=== PATIENT | male | born 1980 | race Caucasian/White ===

== ENCOUNTER 2017-10-13 19:55 | Emergency (ER) | payer OTHER ==
[2017-10-13 20:01] VITALS: BP 183/89; PULSE 105; RESP 18; TEMP 97.5
--- NOTE | 2017-10-13 20:33 | XR ---
EXAMINATION TYPE: XR knee complete RT DATE OF EXAM: 10/13/2017 CLINICAL HISTORY: Right knee pain TECHNIQUE: Three views of the right knee are obtained. COMPARISON: None. FINDINGS: There is no acute fracture/dislocation evident in right knee. The tri-compartment joint s paces appear within normal limits. The overlying soft tissue appears unremarkable. Incidental note i s made of a fabella. IMPRESSION: There is no acute fracture or dislocation in the right knee.
--- NOTE | 2017-10-13 21:19 | ED ---
General Adult HPI - General Chief complaint: Extremity Injury, Lower Stated complaint: Knee pain Time Seen by Provider: 10/13/17 20:04 Source: patient, family, RN notes reviewed Mode of arrival: ambulatory Limitations: no limitations - History of Present Illness Initial comments: 37-year-old patient presents to the emergency department for a chief complaint of right knee pain times two days. 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 Patient states he thinks it is dislocated. Patient states he has tendinitis in the knee which often causes him pain. Patient takes Tylenol for this. Patient denies any other falls or injuries. Patient states he is able to walk on it. Patient has no other complaints at this time including shortness of breath, chest pain, abdominal pain, nausea or vomiting, headache, or visual changes. - Related Data Home Medications Medication Instructions Recorded Confirmed No Known Home Medications [No 10/13/17 10/13/17 Known Home Medications] Allergies Allergy/AdvReac Type Severity Reaction Status Date / Time No Known Allergies Allergy Verified 10/13/17 20:01 Review of Systems ROS Statement: Those systems with pertinent positive or pertinent negative responses have been documented in the HPI. ROS Other: All systems not noted in ROS Statement are negative. Past Medical History Additional Past Medical History / Comment(s): knee pain History of Any Multi-Drug Resistant Organisms: None Reported Past Surgical History: Orthopedic Surgery Past Psychological History: No Psychological Hx Reported Smoking Status: Current every day smoker Past Alcohol Use History: Occasional Past Drug Use History: None Reported General Exam Limitations: no limitations General appearance: alert, in no apparent distress Respiratory exam: Present: normal lung sounds bilaterally. Absent: respiratory distress, wheezes, rales, rhonchi, stridor Cardiovascular Exam: Present: regular rate, normal rhythm, normal heart sounds. Absent: systolic murmur, diastolic murmur, rubs, gallop, clicks Extremities exam: Present: normal inspection, full ROM (Full flexion and extension of the right knee.), normal capillary refill (Refill less than 2 seconds and pedal and PT pulse 2+.), other (Sensation intact in the right lower extremity.). Absent: tenderness (No tenderness to palpation of the right knee.) , pedal edema, joint swelling (No swelling or redness noted in the right knee.) , calf tenderness Course Vital Signs 05/26/18 19:58 Temperature 97.5 F L Pulse Rate 105 H Respiratory 18 Rate Blood Pressure 183/89 O2 Sat by Pulse 100 Oximetry Medical Decision Making - Medical Decision Making 37-year-old male presents to the emergency determine for a chief complaint of right knee pain 2 days. Patient was at work when he "twisted his knee wrong". Patient thinks his knee is dislocated. Patient also has a history of tendinitis. Patient is able to walk on it without difficulty. On exam patient has full range of motion of the right knee and neurovascular is intact. No acute fracture or dislocation in the right knee. Tricompartment joint spaces appear within normal limits. Overlying soft tissue unremarkable. Patient likely has a ligamentous injury of the knee. He can follow up outpatient for this. He will be given the referral to the orthopedic surgeon inspector clip on sunglasses. Patient was offered a prescription for Motrin which he declined. He states he has Tylenol at home. He was given a prescription for crutches in case he has pain walking. He will return to the emergency department if he has any worsening symptoms. Disposition Clinical Impression: Knee pain, right Disposition: HOME SELF-CARE Condition: Good Instructions: Knee Sprain (ED), Knee Pain (ED) Additional Instructions: Please take Motrin and Tylenol for pain. Please rest, ice, and elevate the right knee. Use brace as necessary. Return to the emergency department if symptoms worsen. Follow-up with orthopedics or primary care if symptoms continue. Is patient prescribed a controlled substance at d/c from ED?: No Referrals: Lester Donaldson DO [Doctor of Osteopathic Medicine] - 1-2 days Time of Disposition: 21:17
== END 2017-10-13 21:29 | disposition home or self-care (01) ==
LOC: EC 19:55
DX: M25.561 Pain in right knee (principal); F17.200 Nicotine dependence, unspecified, uncomplicated; X50.1XXA Overexertion from prolonged static or awkward postures, initial encounter; Y93.89 Activity, other specified; Y92.69 Other specified industrial and construction area as the place of occurrence of the external cause
CPT/HCPCS: 99283

== ENCOUNTER 2022-05-17 04:13 | Inpatient (IN) | payer BC ==
[2022-05-17] MEDS ORDERED: ETOMIDATE 2 MG/ML 10 ML VIAL IVP STA (04:21)
[2022-05-17] MEDS ORDERED: SUCCINYLCHOLINE CHLORIDE 200 MG/10 ML VIAL IV STA (04:21)
[2022-05-17 04:40] LABS: Glucose,Whole Blood >600 mg/dL (70-110)
--- NOTE | 2022-05-17 04:49 | XR ---
EXAMINATION TYPE: XR chest 1V portable DATE OF EXAM: 05/17/2022 COMPARISON: NONE HISTORY: Intubation TECHNIQUE: Single view FINDINGS: The endotracheal tube is 1.5 cm into the right mainstem bronchus. There is some mild atelec tasis and infiltrate left lower lobe behind the heart. Right lung is clear. There are chest leads. Donnell ny thorax is intact. IMPRESSION: There is some infiltrate or atelectasis left lower lobe. Malposition of the endotracheal tube in the right mainstem bronchus. The nasogastric tube has the tip in the lower esophagus.
--- NOTE | 2022-05-17 04:51 | XR ---
EXAMINATION TYPE: XR chest 1V portable DATE OF EXAM: 05/17/2022 COMPARISON: NONE HISTORY: Respiratory failure TECHNIQUE: Single view FINDINGS: The endotracheal tube is 3.5 cm from the ashutosh. The nasogastric tube has the tip in the lo wer esophagus at the level of the left atrium. The lungs are clear of consolidation. No heart failure . There are chest leads. IMPRESSION: NG tube is in the esophagus. Endotracheal tube in good position. Normal heart.
[2022-05-17 05:19] LABS: Appearance,Urine Clear (Clear); Bacteria,Urine Rare /hpf; Bilirubin,Urine Negative (Negative); Blood,Urine Small (Negative); Color,Urine Light Yellow; Glucose,Urine (UA) 4+ (Negative); Hyaline Casts,Urine 1 /lpf (0-2); Leukocyte Esterase,Urine Negative (Negative); Mucus,Urine Rare /hpf; Nitrite,Urine Negative (Negative); PH, Urine 5.5 (5.0-8.0); Protein,Urine 2+ (Negative); RBC,Urine <1 /hpf (0-5); Specific Gravity,Urine 1.032 (1.001-1.035); Squamous Epithelial Cell,Urine 1 /hpf (0-4); Urobilinogen,Urine <2.0 mg/dL (<2.0); WBC,Urine 1 /hpf (0-5)
[2022-05-17 05:25] LABS: Ketones,Urine 4+ (Negative)
[2022-05-17 05:27] LABS: Alcohol <10 mg/dL; Lipase 349 U/L (23-300)
[2022-05-17 05:27] LABS: Amphetamine Screen,Urine Not Detected (NotDetected); Barbiturate Screen,Urine Not Detected (NotDetected); Benzodiazepines Screen,Urine Not Detected (NotDetected); Cocaine Screen,Urine Not Detected (NotDetected); Methadone Screen, Urine Not Detected (NotDetected); Opiate Screen,Urine Not Detected (NotDetected); Oxycodone Screen, Urine Not Detected (NotDetected); Phencyclidine Screen,Urine Not Detected (NotDetected); Tricyclic Antidepressant,Urine Not Detected (NotDetected); Urn Cannabinoid Scrn Not Detected (NotDetected)
[2022-05-17 05:29] LABS: ABG Oxygen Saturation 99.3 % (94-97); ABG PO2 256 mmHg (83-108); ABG TCO2 3 mmol/L (19-24); Allen Test Performed? Yes
[2022-05-17 05:35] LABS: ABG PCO2 16 mmHg (35-45); ABG PH <6.80 (7.35-7.45)
[2022-05-17 05:36] LABS: ABG Base Excess -32.2 mmol/L; ABG HCO3 3 mmol/L (21-25)
--- NOTE | 2022-05-17 05:38 | CT ---
EXAMINATION TYPE: CT brain wo con DATE OF EXAM: 05/17/2022 COMPARISON: None HISTORY: AMS CT DLP: 1099.4 mGycm Automated exposure control for dose reduction was used. Images obtained of the brain without contrast. Ventricles and sulci appear normal. There is no mass effect or midline shift. No sign of intracranial hemorrhage. The calvarium is intact. No evidence of cerebral edema. There is extensive mucosal thickening in the paranasal sinuses. IMPRESSION: Negative CT scan of the brain. Pansinusitis.
[2022-05-17] MEDS ORDERED: MIDAZOLAM 1 MG/ML 5 ML VIAL IV STA (05:40)
[2022-05-17 05:41] LABS: Lactic Acid, Venous 6.6 mmol/L (0.7-2.0)
[2022-05-17] MEDS ORDERED: SODIUM CHLORIDE 0.9% 1,000 ML IV ONE ×2 (05:43)
[2022-05-17 06:01] LABS: HGB 18.4 gm/dL (13.0-17.5); Hypochromasia Marked; MCHC 30.1 g/dL (31.0-37.0); MCV 109.4 fL (80.0-100.0); Macrocytosis Moderate; Mean Platelet Volume 10.1; Platelet Count 395 k/uL (150-450); WBC 12.4 k/uL (3.8-10.6)
[2022-05-17 06:06] LABS: ALT 17 U/L (4-49); African American GFR (CKD) 44 (>60 ml/min/1.73 sqM); Albumin 4.1 g/dL (3.5-5.0); Blood Urea Nitrogen 21 mg/dL (9-20); Calcium 9.1 mg/dL (8.4-10.2); Chloride 105 mmol/L (98-107); Non-African American GFR(CKD) 38 (>60 ml/min/1.73 sqM); Sodium 140 mmol/L (137-145); Total Bilirubin 0.6 mg/dL (0.2-1.3); Total Protein 7.1 g/dL (6.3-8.2)
[2022-05-17 06:17] LABS: AST 22 U/L (17-59); Carbon Dioxide <5 mmol/L (22-30); Glucose 794 mg/dL (74-99); Potassium 4.5 mmol/L (3.5-5.1)
[2022-05-17 06:18] LABS: Alkaline Phosphatase 113 U/L (38-126)
--- NOTE | 2022-05-17 06:26 | ED ---
General Adult HPI - General Chief complaint: Altered Mental Status Stated complaint: AMS Time Seen by Provider: 05/17/22 04:30 Source: EMS Mode of arrival: EMS - History of Present Illness Initial comments: This is a 42-year-old male who presents emergency department via EMS for altered mental status and being found next to the bed by the . The patient's stated that she found the patient lying on the floor next to his bed altered, not able to speak or respond to her. The patient and called 911. The patient does not have a reported past medical history and no further history was obtained at this time by EMS nor by the patient as he was altered and was responsive to only painful stimuli. EMS did administer 2 mg of Narcan without any change. - Related Data Home Medications Medication Instructions Recorded Confirmed No Known Home Medications 10/13/17 10/13/17 Allergies Allergy/AdvReac Type Severity Reaction Status Date / Time No Known Allergies Allergy Verified 10/13/17 20:01 Review of Systems ROS Statement: Those systems with pertinent positive or pertinent negative responses have been documented in the HPI. ROS Other: All systems not noted in ROS Statement are negative. Past Medical History Additional Past Medical History / Comment(s): knee pain History of Any Multi-Drug Resistant Organisms: Unobtainable Past Surgical History: Orthopedic Surgery Past Psychological History: Unable to Obtain Past Alcohol Use History: Unable to Obtain Past Drug Use History: Unable to Obtain General Exam Limitations: altered mental status General appearance: lethargic, obtunded Head exam: Present: atraumatic, normocephalic Eye exam: Present: normal appearance, PERRL Pupils: Present: normal accommodation ENT exam: Present: normal exam, normal oropharynx, mucous membranes dry Neck exam: Present: normal inspection, full ROM Respiratory exam: Present: normal lung sounds bilaterally Cardiovascular Exam: Present: tachycardia, normal heart sounds GI/Abdominal exam: Present: soft, normal bowel sounds Extremities exam: Present: normal inspection, full ROM Back exam: Present: normal inspection, full ROM Neurological exam: Present: altered, other (Only responsive to painful stimuli) Psychiatric exam: Present: other (Unresponsive, only responsive to painful stimuli) Skin exam: Present: warm, dry Course Vital Signs 05/17/22 05/17/22 05/17/22 04:17 04:28 04:57 Pulse Rate 107 H 93 Respiratory 26 H 20 Rate Blood Pressure 115/96 128/77 O2 Sat by Pulse 99 99 Oximetry Fraction of 50 Inspired Oxygen (FIO2) 05/17/22 05:31 Pulse Rate 93 Respiratory 20 Rate Blood Pressure 115/83 O2 Sat by Pulse 100 Oximetry Fraction of Inspired Oxygen (FIO2) EKG Findings - EKG Comments: EKG Findings:: An EKG was obtained and was interpreted by myself. EKG showed a rate of 90, P arrival 133, QR baptism 90 and QTC of 434. This EKG showed a normal sinus rhythm with no ST segment elevations or depressions noted. Procedures - Intubation Sedative: Etomidate Mg Given: 20 Paralytic: Succinylcholine Mg Given: 70 Laryngoscope: Nisa Size: 4 ET Tube Size: 7.5 ET Tube Uncuffed: No Tube Secured Depth (cm): 23 Tube Secured Location: lips Tube Placement Confirmation: visualized tube passing through cords, equal breath sounds bilaterally, confirmation by capnometry Patient Tolerated Procedure: well Intubation Complications: none Medical Decision Making - Medical Decision Making Was pt. sent in by a medical professional or institution? @ -No Did you speak to anyone other than the patient for history? @ -EMS Did you review nursing and triage notes? @ -Nursing triage notes were reviewed Were old charts reviewed? @ -No Differential Diagnosis? @ -Intracranial hemorrhage, CVA, drug ingestion, new onset diabetes with DKA EKG interpreted by me (3pts min.)? @ -As above X-rays interpreted by me (1pt min.)? @ -Chest x-ray was obtained and was interpreted by myself. Chest x-ray showed an NG tube that was in the esophagus the need to be removed and the nurse was told. Endotracheal tube is in good position. There is normal heart. CT interpreted by me (1pt min.)? @ -CT of the head was also obtained and was interpreted by myself. CT of the head showed no acute intracranial process. U/S interpreted by me (1pt. min.)? @ -[none] What testing was considered but not performed? (CT, X-rays, U/S, labs)? Why? @None What meds were considered but not given? Why? @ -[none] Did you discuss the management of the patient with other professionals? @ -Yes, accepting physician, Dr. Eid and ICU program supervisor, Dr. Moreno. Did you reconcile home meds? @ -[none] Was smoking cessation discussed for >3mins.? @ -[none] Was critical care preformed (if so, how long)? @ -Yes, see above Were there social determinants of health that impacted care today? How? (Homelessness, low income, unemployed, alcoholism, drug addiction, transportation, low edu. Level, literacy, decrease access to med. care, penitentiary, rehab)? @ -No Was there de-escalation of care discussed even if they declined? (Discuss DNR or withdrawal of care, Hospice)? @ -No What co-morbidities impacted this encounter? (DM, HTN, Smoking, COPD, CAD, Cancer, CVA, Hep., AIDS, mental health diagnosis, sleep apnea, morbid obesity)? @ -No Was patient admitted / discharged? @ -The patient was seen and evaluated emergency department. Immediately on arrival, the patient wasn't treated for airway protection as he was altered and only responsive to painful stimuli. Laboratory workup was obtained and ABGs were obtained initially on arrival. ABG showed a pH of 6.7 and a bicarb of 2 consistent with possible severe DKA. CT head and chest x-ray negative. The patient did tolerate the intubation well and remained stable after the intubation. Laboratory workup showed labs consistent with DKA and the patient did have a potassium of 4.5 so he was supplemented with potassium and started on an insulin drip. Due to the patient's severe DKA in the setting of new onset diabetes, the patient will be admitted to the ICU for further workup and evaluation. The patient's accepting physician, Dr. Eid was contacted and accepted at 0622 and the program supervisor was also made aware of the patient. Dr. Moreno was accepting. The patient was placed in ICU in stable condition. Undiagnosed new problem with uncertain prognosis? @ -[none] Drug Therapy requiring intensive monitoring for toxicity (Heparin, Nitro, Insulin, Cardizem)? @ -Insulin drip Were any procedures done? @ -Yes, intubation, please see note above Diagnosis/symptom? @ -New onset diabetes with severe DKA Acute, or Chronic, or Acute on Chronic? @ -Acute Uncomplicated (without systemic symptoms) or Complicated (systemic symptoms)? @ -Complicated Side effects of treatment? @ -[none] Exacerbation, Progression, or Severe Exacerbation] @ -[no] Poses a threat to life or bodily function? @ -Yes Diagnosis/symptom? @ -Ventilator dependent respiratory failure Acute, or Chronic, or Acute on Chronic? @ -Acute Uncomplicated (without systemic symptoms) or Complicated (systemic symptoms)? @ -Complicated Side effects of treatment? @ -[none] Exacerbation, Progression, or Severe Exacerbation] @ -[no] Poses a threat to life or bodily function? @ -Yes - Lab Data Result diagrams: 05/17/22 04:51 Lab Results 05/17/22 05/17/22 05/17/22 Range/Units 04:36 04:51 04:51 Sample Site ABG pH (7.35-7.45) ABG pCO2 (35-45) mmHg ABG pO2 (83-108) mmHg ABG HCO3 (21-25) mmol/L ABG Total CO2 (19-24) mmol/L ABG O2 Saturation (94-97) % ABG Base Excess mmol/L Zechariah Test FiO2 % Sodium (137-145) mmol/L Potassium (3.5-5.1) mmol/L Chloride (98-107) mmol/L Carbon Dioxide (22-30) mmol/L Anion Gap mmol/L BUN (9-20) mg/dL Creatinine (0.66-1.25) mg/dL Est GFR (CKD-EPI)AfAm (>60 ml/min/1.73 sqM) Est GFR (CKD-EPI)NonAf (>60 ml/min/1.73 sqM) Glucose (74-99) mg/dL POC Glucose (mg/dL) >600 H (70-110) mg/dL POC Glu Process Controls Technician ID Mariama Ervin Plasma Lactic Acid David (0.7-2.0) mmol/L Calcium (8.4-10.2) mg/dL Magnesium (1.6-2.3) mg/dL Total Bilirubin (0.2-1.3) mg/dL AST (17-59) U/L ALT (4-49) U/L Alkaline Phosphatase (38-126) U/L Ammonia (<30) umol/L Troponin I <0.012 (0.000-0.034) ng/mL NT-Pro-B Natriuret Pep 85 pg/mL Total Protein (6.3-8.2) g/dL Albumin (3.5-5.0) g/dL Lipase (23-300) U/L Urine Color Urine Appearance (Clear) Urine pH (5.0-8.0) Ur Specific [place] (1.001-1.035) Urine Protein (Negative) Urine Glucose (UA) (Negative) Urine Ketones (Negative) Urine Blood (Negative) Urine Nitrite (Negative) Urine Bilirubin (Negative) Urine Urobilinogen (<2.0) mg/dL Ur Leukocyte Esterase (Negative) Urine RBC (0-5) /hpf Urine WBC (0-5) /hpf Ur Squamous Epith Cells (0-4) /hpf Urine Bacteria (None) /hpf Hyaline Casts (0-2) /lpf Urine Mucus (None) /hpf Urine Opiates Screen (NotDetected) Ur Oxycodone Screen (NotDetected) Urine Methadone Screen (NotDetected) Ur Propoxyphene Screen (NotDetected) Ur Barbiturates Screen (NotDetected) U Tricyclic Antidepress (NotDetected) Ur Phencyclidine Scrn (NotDetected) Ur Amphetamines Screen (NotDetected) U Methamphetamines Scrn (NotDetected) U Benzodiazepines Scrn (NotDetected) Urine Cocaine Screen (NotDetected) U Marijuana (THC) Screen (NotDetected) Serum Alcohol mg/dL 05/17/22 05/17/22 05/17/22 Range/Units 04:51 04:51 04:51 Sample Site ABG pH (7.35-7.45) ABG pCO2 (35-45) mmHg ABG pO2 (83-108) mmHg ABG HCO3 (21-25) mmol/L ABG Total CO2 (19-24) mmol/L ABG O2 Saturation (94-97) % ABG Base Excess mmol/L Zechariah Test FiO2 % Sodium 140 (137-145) mmol/L Potassium 4.5 (3.5-5.1) mmol/L Chloride 105 (98-107) mmol/L Carbon Dioxide <5 L* (22-30) mmol/L Anion Gap mmol/L BUN 21 H (9-20) mg/dL Creatinine 2.07 H (0.66-1.25) mg/dL Est GFR (CKD-EPI)AfAm 44 (>60 ml/min/1.73 sqM) Est GFR (CKD-EPI)NonAf 38 (>60 ml/min/1.73 sqM) Glucose 794 H* (74-99) mg/dL POC Glucose (mg/dL) (70-110) mg/dL POC Glu Process Controls Technician ID Plasma Lactic Acid David 6.6 H* (0.7-2.0) mmol/L Calcium 9.1 (8.4-10.2) mg/dL Magnesium 3.0 H (1.6-2.3) mg/dL Total Bilirubin 0.6 (0.2-1.3) mg/dL AST 22 (17-59) U/L ALT 17 (4-49) U/L Alkaline Phosphatase 113 (38-126) U/L Ammonia 73 H (<30) umol/L Troponin I (0.000-0.034) ng/mL NT-Pro-B Natriuret Pep pg/mL Total Protein 7.1 (6.3-8.2) g/dL Albumin 4.1 (3.5-5.0) g/dL Lipase 349 H (23-300) U/L Urine Color Urine Appearance (Clear) Urine pH (5.0-8.0) Ur Specific [place] (1.001-1.035) Urine Protein (Negative) Urine Glucose (UA) (Negative) Urine Ketones (Negative) Urine Blood (Negative) Urine Nitrite (Negative) Urine Bilirubin (Negative) Urine Urobilinogen (<2.0) mg/dL Ur Leukocyte Esterase (Negative) Urine RBC (0-5) /hpf Urine WBC (0-5) /hpf Ur Squamous Epith Cells (0-4) /hpf Urine Bacteria (None) /hpf Hyaline Casts (0-2) /lpf Urine Mucus (None) /hpf Urine Opiates Screen (NotDetected) Ur Oxycodone Screen (NotDetected) Urine Methadone Screen (NotDetected) Ur Propoxyphene Screen (NotDetected) Ur Barbiturates Screen (NotDetected) U Tricyclic Antidepress (NotDetected) Ur Phencyclidine Scrn (NotDetected) Ur Amphetamines Screen (NotDetected) U Methamphetamines Scrn (NotDetected) U Benzodiazepines Scrn (NotDetected) Urine Cocaine Screen (NotDetected) U Marijuana (THC) Screen (NotDetected) Serum Alcohol <10 mg/dL 05/17/22 05/17/22 05/17/22 Range/Units 04:52 04:52 05:27 Sample Site right radial ABG pH <6.80 L* (7.35-7.45) ABG pCO2 16 L* (35-45) mmHg ABG pO2 256 H (83-108) mmHg ABG HCO3 3 L* (21-25) mmol/L ABG Total CO2 3 L (19-24) mmol/L ABG O2 Saturation 99.3 H (94-97) % ABG Base Excess -32.2 mmol/L Zechariah Test Yes FiO2 50 % Sodium (137-145) mmol/L Potassium (3.5-5.1) mmol/L Chloride (98-107) mmol/L Carbon Dioxide (22-30) mmol/L Anion Gap mmol/L BUN (9-20) mg/dL Creatinine (0.66-1.25) mg/dL Est GFR (CKD-EPI)AfAm (>60 ml/min/1.73 sqM) Est GFR (CKD-EPI)NonAf (>60 ml/min/1.73 sqM) Glucose (74-99) mg/dL POC Glucose (mg/dL) (70-110) mg/dL POC Glu Process Controls Technician ID Plasma Lactic Acid David (0.7-2.0) mmol/L Calcium (8.4-10.2) mg/dL Magnesium (1.6-2.3) mg/dL Total Bilirubin (0.2-1.3) mg/dL AST (17-59) U/L ALT (4-49) U/L Alkaline Phosphatase (38-126) U/L Ammonia (<30) umol/L Troponin I (0.000-0.034) ng/mL NT-Pro-B Natriuret Pep pg/mL Total Protein (6.3-8.2) g/dL Albumin (3.5-5.0) g/dL Lipase (23-300) U/L Urine Color Light Yellow Urine Appearance Clear (Clear) Urine pH 5.5 (5.0-8.0) Ur Specific V[place]y 1.032 (1.001-1.035) Urine Protein 2+ H (Negative) Urine Glucose (UA) 4+ H (Negative) Urine Ketones 4+ H (Negative) Urine Blood Small H (Negative) Urine Nitrite Negative (Negative) Urine Bilirubin Negative (Negative) Urine Urobilinogen <2.0 (<2.0) mg/dL Ur Leukocyte Esterase Negative (Negative) Urine RBC <1 (0-5) /hpf Urine WBC 1 (0-5) /hpf Ur Squamous Epith Cells 1 (0-4) /hpf Urine Bacteria Rare H (None) /hpf Hyaline Casts 1 (0-2) /lpf Urine Mucus Rare H (None) /hpf Urine Opiates Screen Not Detected (NotDetected) Ur Oxycodone Screen Not Detected (NotDetected) Urine Methadone Screen Not Detected (NotDetected) Ur Propoxyphene Screen Not Detected (NotDetected) Ur Barbiturates Screen Not Detected (NotDetected) U Tricyclic Antidepress Not Detected (NotDetected) Ur Phencyclidine Scrn Not Detected (NotDetected) Ur Amphetamines Screen Not Detected (NotDetected) U Methamphetamines Scrn Not Detected (NotDetected) U Benzodiazepines Scrn Not Detected (NotDetected) Urine Cocaine Screen Not Detected (NotDetected) U Marijuana (THC) Screen Not Detected (NotDetected) Serum Alcohol mg/dL Critical Care Time Critical Care Time: Yes Total Critical Care Time: 52 Disposition Clinical Impression: DKA (diabetic ketoacidosis), New onset type 1 diabetes mellitus, uncontrolled, Respiratory failure requiring intubation, Altered mental status Disposition: ADMITTED IP TO THIS [facility] Condition: Serious Is patient prescribed a controlled substance at d/c from ED?: No Referrals: None,Stated [Primary Care Provider] - 1-2 days Time of Disposition: 06: Decision to Admit Reason: Admit from EC Decision Date: 05/17/22 Decision Time: :
[2022-05-17 06:45] LABS: HCT 61.3 % (39.0-53.0)
[2022-05-17 06:53] LABS: Glucose,Whole Blood >600 mg/dL (70-110)
[2022-05-17] MEDS: INSULIN REGULAR 100 UNIT in SODIUM CHLORIDE 0.9% 100 ML IV SCH ×2 (06:53→20:21)
[2022-05-17] MEDS: SODIUM CHLORIDE 0.9% 1,000 ML IV SCH ×2 (07:01→12:15)
[2022-05-17 07:24] LABS: Band Neutrophils % 5 %; Monocytes # (M) 0.62 k/uL (0-1.0); Neutrophils % (M) 69 %; Nucleated Red Blood Cells 0 /100 WBC (0-0); Total Cells Counted 100
[2022-05-17] MEDS ORDERED: SODIUM BICARB 8.4% 50 ML SYR (1 MEQ/ML) IV STA ×2 (07:27→08:06)
--- NOTE | 2022-05-17 07:44 | P.CNPUL ---
History of Present Illness Consult date: 05/17/22 Requesting physician: Susie Eid Chief complaint: Respiratory failure/DKA History of present illness: Pulmonary consult dated 05/17/2022. 42-year-old male with no significant past medical history other than suspected diabetes, who apparently was found unresponsive with mental status changes, by his . Apparently he was lying on the floor next to the bed. He was unable to respond or speak. EMS was called, and the patient was transported into the emergency department. In the emergency department, he did receive Narcan, without any change. The patient was intubated in the emergency room. The patient has no significant past medical history according to his , and takes no medications on a routine basis at home. The patient does smoke cigarettes. The patient recently failed his Department of Transportation examination because of elevated blood sugar. For that reason, the states that they suspected diabetes. Apparently no alcohol use. No family doctor as mentioned above. He seen in the emergency room, trauma room 1. He is intubated and mechanically ventilated. He is getting propofol at 35 mcg/kg/m, and saline via bolus. An insulin drip is going to be started. He has an NG tube in place, a Hedrick catheter in place, and an endotracheal tube. Ventilator settings include the v olume assist control, rate 16, tidal volume 400, FiO2 50%, and PEEP of 5. White count 12.4, hemoglobin 18.4, hematocrit 61.3, and platelet count 395,000. Blood gases show a PaO2 of 256, pCO2 of 16, and a pH is 6.80. Sodium 140, potassium 4.5, chlorides 105, CO2 less than 5, BUN 21, and creatinine 2.07. Glucose was 794. Lactic acid 6.6. Magnesium 3. Lipase 349. Drug screen was negative. Br ain CT was negative save for pansinusitis. Chest x-ray shows a properly placed NG tube, and a properly placed endotracheal tube. It's 3.5 cm above the ashutosh. Review of Systems REVIEW OF SYSTEMS: Review of systems cannot be obtained as the patient's currently sedated and intubated. He apparently was found unresponsive at home, by his . CONSTITUTIONAL: [Negative.] NEUROLOGIC: [ Negative.] HEENT: [ Negative.] CARDIAC: [Negative.] PULMONARY: [Negative.] GI: [Negative.] : [Negative.] RHEUMATOLOGIC: [ Negative.] IMMUNOLOGIC: [ Negative.] ENDOCRINE: [Negative. ] DERMATOLOGIC: [Negative.] Past Medical History Additional Past Medical History / Comment(s): knee pain History of Any Multi-Drug Resistant Organisms: Unobtainable Past Surgical History: Orthopedic Surgery Past Psychological History: Unable to Obtain Past Alcohol Use History: Unable to Obtain Past Drug Use History: Unable to Obtain Medications and Allergies Home Medications Medication Instructions Recorded Confirmed Type No Known Home Medications 10/13/17 05/17/22 History Allergies Allergy/AdvReac Type Severity Reaction Status Date / Time No Known Allergies Allergy Verified 05/17/22 07:19 Physical Exam Osteopathic Statement: *. No significant issues noted on an osteopathic structural exam other than those noted in the History and Physical/Consult. Vitals: Vital Signs Temp Pulse Resp BP Pulse Ox FiO2 05/17/22 06:49 97.2 F L 87 18 118/72 100 05/17/22 05:31 93 20 115/83 100 05/17/22 04:57 93 20 128/77 99 05/17/22 04:28 50 05/17/22 04:17 107 H 26 H 115/96 99 Intake and Output 05/16/22 05/17/22 05/17/22 22:59 06:59 14:59 Intake Total 6.811 Balance 6.811 Intake: Intake, IV Titration 6.811 Amount propofoL 1,000 mg In 6.811 Empty Bag 1 bag @ 15 MCG/ KG/MIN 4.286 mls/hr IV . [id number] Rx#:[id number] Other: Weight 47.627 kg No acute distress, sedated, with an orally placed endotracheal tube and NG tube. HEENT examination is grossly unremarkable. Neck supple. Full range of motion. No adenopathy thyromegaly or neck vein distention. Cardiovascular examination reveals regular rhythm rate. S1-S2 normal. No S3 or S4. No discernible murmur noted. Heart rate 87 bpm. Lungs reveal clear breath sounds. Breath sounds are equal bilaterally. No adventitious lung sounds including wheezes rhonchi or crackles. Abdomen soft bowel sounds are heard. No masses or tenderness. Extremities are intact. No cyanosis clubbing or edema. Skin is without rash or lesion. Neurologic examination cannot be properly assessed. Results - Laboratory Findings CBC and BMP: 05/17/22 04:51 05/17/22 04:51 ABG ABG pH <6.80 (7.35-7.45) L* 05/17/22 05:27 ABG pCO2 16 mmHg (35-45) L* 05/17/22 05:27 ABG pO2 256 mmHg (83-108) H 05/17/22 05:27 ABG O2 Saturation 99.3 % (94-97) H 05/17/22 05:27 Abnormal lab findings: Abnormal Labs 05/17/22 05/17/22 05/17/22 04:36 04:51 04:51 WBC Hgb Hct MCV MCHC Neutrophils # (Manual) ABG pH ABG pCO2 ABG pO2 ABG HCO3 ABG Total CO2 ABG O2 Saturation Carbon Dioxide BUN Creatinine Glucose POC Glucose (mg/dL) >600 H Plasma Lactic Acid David 6.6 H* Magnesium Ammonia 73 H Lipase 349 H Urine Protein Urine Glucose (UA) Urine Ketones Urine Blood Urine Bacteria Urine Mucus 05/17/22 05/17/22 05/17/22 04:51 04:51 04:52 WBC 12.4 H Hgb 18.4 H Hct 61.3 H* MCV 109.4 H MCHC 30.1 L Neutrophils # (Manual) 9.10 H ABG pH ABG pCO2 ABG pO2 ABG HCO3 ABG Total CO2 ABG O2 Saturation Carbon Dioxide <5 L* BUN 21 H Creatinine 2.07 H Glucose 794 H* POC Glucose (mg/dL) Plasma Lactic Acid David Magnesium 3.0 H Ammonia Lipase Urine Protein 2+ H Urine Glucose (UA) 4+ H Urine Ketones 4+ H Urine Blood Small H Urine Bacteria Rare H Urine Mucus Rare H 05/17/22 05/17/22 05:27 06:50 WBC Hgb Hct MCV MCHC Neutrophils # (Manual) ABG pH <6.80 L* ABG pCO2 16 L* ABG pO2 256 H ABG HCO3 3 L* ABG Total CO2 3 L ABG O2 Saturation 99.3 H Carbon Dioxide BUN Creatinine Glucose POC Glucose (mg/dL) >600 H Plasma Lactic Acid David Magnesium Ammonia Lipase Urine Protein Urine Glucose (UA) Urine Ketones Urine Blood Urine Bacteria Urine Mucus - Diagnostic Findings Chest x-ray: image reviewed Assessment and Plan Assessment: Acute diabetic ketoacidosis, and a patient with suspected diabetes, based on a failed DOT examination. S/P intubation and mechanical ventilation for acute respiratory failure and inability to protect his airway, 05/17/2022. Acute kidney injury. Severe anion gap metabolic acidosis. Severe dehydration. Acute lactic acidemia. Polycythemia secondary to dehydration. History of tobacco use. Plan: Plan dated 05/17/2022. The patient is seen in the emergency room, trauma room 1. The patient is currently connected to mechanical ventilator. He sedated. The patient will be given a fluid bolus, and also on insulin drip. The patient has an NG tube in p lace, Hedrick catheter in place, and endotracheal tube in place. The patient has no significant past medical history although the family suspected diabetes, based on a failed DOT examination. The patient does not have a family doctor. The patient does smoke cigarettes. The patient does not drink alcohol or take illicit drugs. The patient does not take any prescription medications at home on a regular basis. The patient is admitted to the intensive care unit. Time with Patient: Greater than 30
[2022-05-17 07:55] LABS: Glucose,Whole Blood >600 mg/dL (70-110)
[2022-05-17] MEDS: POTASSIUM CHLORIDE 10 MEQ in WATER FOR INJECTION 1 100ML.BAG IVPB SCH ×4 (08:30→13:37)
--- NOTE | 2022-05-17 08:53 | XR ---
EXAMINATION TYPE: XR chest 1V DATE OF EXAM: 05/17/2022 COMPARISON: 05/17/2022 earlier exam INDICATION: G-tube placement TECHNIQUE: Single frontal view of the chest is obtained. FINDINGS: The heart size is normal. The pulmonary vasculature is normal. The lungs are clear. Endotracheal tube tip is 7 cm above the ashutosh. Nasogastric tube appears unchanged in position. This should be advanced approximately 17 cm. IMPRESSION: 1. No acute pulmonary process. 2. Nasogastric tube appears unchanged and should be advanced approximately 17 cm. 3. Endotracheal tube is pulled back slightly from comparison.
[2022-05-17 09:17] LABS: Glucose,Whole Blood >600 mg/dL (70-110)
[2022-05-17 09:37] LABS: VBG PH 7.05 (7.31-7.41)
[2022-05-17] MEDS: HYDROmorphone 0.5 MG/0.5 ML SYRINGE IVP PRN ×3 (09:50→20:24)
[2022-05-17 09:59] LABS: African American GFR (CKD) 54 (>60 ml/min/1.73 sqM); Blood Urea Nitrogen 26 mg/dL (9-20); Chloride 115 mmol/L (98-107); Non-African American GFR(CKD) 46 (>60 ml/min/1.73 sqM); Phosphorus 5.8 mg/dL (2.5-4.5); Potassium 4.3 mmol/L (3.5-5.1); Sodium 144 mmol/L (137-145)
[2022-05-17 10:10] LABS: Glucose,Whole Blood 569 mg/dL (70-110)
[2022-05-17 10:11] LABS: Carbon Dioxide <5 mmol/L (22-30); Glucose 797 mg/dL (74-99)
[2022-05-17] MEDS: PIPERACILLIN-TAZOBACTAM 3.375 GM in SODIUM CHLORIDE 0.9% 100 ML IVPB SCH ×3 (10:39→23:01)
[2022-05-17] MEDS: HEPARIN SODIUM,PORCINE/PF 5,000 UNIT/0.5 ML SYRINGE SQ SCH ×2 (10:40→20:26)
[2022-05-17] MEDS: PANTOPRAZOLE 40 MG/10 ML VIAL IVP SCH (10:42)
--- NOTE | 2022-05-17 10:45 | XR ---
EXAMINATION TYPE: XR chest 1V portable DATE OF EXAM: 05/17/2022 COMPARISON: 05/17/2022 INDICATION: NG tube adjustment TECHNIQUE: Single frontal view of the chest is obtained. FINDINGS: The heart size is normal. The pulmonary vasculature is normal. The lungs are clear. Endotracheal tube tip is above the ashutosh. Nasogastric tube now transverses thorax with the tip out o f the field of view within the abdomen. There is some curvature of the nasogastric tube, approximate ly 12 cm and could be pulled back safely. IMPRESSION: 1. No acute pulmonary process. 2. Nasogastric tube deep within the abdomen. This can be pulled back 12 cm and reevaluated.
[2022-05-17 11:11] LABS: Glucose,Whole Blood 476 mg/dL (70-110)
[2022-05-17 12:10] LABS: Glucose,Whole Blood 441 mg/dL (70-110)
--- NOTE | 2022-05-17 12:12 | P.HPIM ---
History of Present Illness H&P Date: 05/17/22 Chief Complaint: DKA Patient is a 42-year-old male with no significant past medical history presenting for altered mentation, and dehydration. Per , who was present in the room, patient was diagnosed with hypoglycemia in January. However, he was not started on any medications. He has an extensive family history of diabetes. Over the last 5 days, patient has been feeling like he is congested, having cough, occasional shortness of breath. He has not had any fevers, but has complained about fatigue and chills. He has been urinating more often. He has not been having any abdominal pain, chest pain, or bowel issues. This morning, patient was found down near the bathroom by . He was also extremely obtunded, which prompted her to call EMS. She claims that he does not drink alcohol, smokes about half a pack a day, and denies any illicit drug use. In the ED, patient was tachypneic and tachycardic, initially on room air. Laboratory workup was significant for hemoconcentration, elevated BUN and creatinine of 2.07, hyperglycemia, lactic acidosis of 6.6, PTH of less than 6.8, pCO2 of 16, bicarbonate less than 5. Patient was intubated in the ED. CTA did not show any acute intracranial process, but did show pansinusitis. Chest x-ray did not show any acute pulmonary process. EKG showed sinus rhythm. Patient was given IV fluids, started on insulin drip. Patient seen and examined at bedside. Pertinent positives and negatives as discussed in HPI, a complete review of systems was performed and all other systems are negative. Vital signs reviewed General: Intubated and sedated, extremely thin Derm: warm, dry Head: atraumatic, normocephalic, symmetric Eyes: anicteric sclera, pupils equal round reactive to light ENT: Nose and ears atraumatic, has an NG tube Neck: No thyromegaly, supple Mouth: no lip lesion, mucus membranes moist Cardiovascular: S1S2 reg, no murmur, no edema Lungs: clear to auscultation bilateral, no rhonchi, no rales, no wheeze, intubated Abdominal: soft, no guarding, no appreciable organomegaly Ext: Cachectic, no contractures Neuro: Sedated, does not spontaneously open eyes, withdraws extremities to pain Psych: Unable to assess Assessment/Plan: Diabetic ketoacidosis Acute metabolic encephalopathy Acute respiratory failure Status post intubation and mechanical ventilation New-onset diabetes mellitus High anion gap metabolic acidosis Lactic acidosis Severe dehydration Acute kidney injury Pansinusitis Polycythemia secondary to dehydration Nicotine dependence -ICU level care -Continue sedation -Status post 2 amps of bicarb -On insulin drip -IV Zosyn -Continue IV fluids -BMP q4h -Continue to monitor urine output The patient is admitted with an anticipated greater than 2 midnight stay for evaluation of DKA. Surrogate decision-maker: CODE STATUS: Full code DVT prophylaxis: Subcu heparin Anticipated discharge date: Pending clinical course Anticipated discharge place: Pending clinical course A total of 75 minutes was spent on the care of this complex patient more than 50% of the time was spent in counseling and care coordination. Past Medical History Additional Past Medical History / Comment(s): knee pain History of Any Multi-Drug Resistant Organisms: Unobtainable Past Surgical History: Orthopedic Surgery Smoking Status: Current every day smoker - Past Family History Father Family Medical History: Diabetes Mellitus Brother(s) Family Medical History: Diabetes Mellitus Medications and Allergies Home Medications Medication Instructions Recorded Confirmed Type No Known Home Medications 10/13/17 05/17/22 History Allergies Allergy/AdvReac Type Severity Reaction Status Date / Time No Known Allergies Allergy Verified 05/17/22 07:19 Physical Exam Vitals: Vital Signs Temp Pulse Resp BP Pulse Ox FiO2 05/17/22 12:00 96.6 F L 102 H 20 94/61 98 50 05/17/22 11:25 50 05/17/22 11:00 91 14 84/61 99 05/17/22 10:00 89 26 H 105/77 99 05/17/22 09:50 89 26 H 99 05/17/22 09:40 16 99 05/17/22 09:30 88.9 F L 85 17 101/70 98 50 05/17/22 09:20 99 50 05/17/22 09:18 99 05/17/22 09:10 50 05/17/22 08:51 50 05/17/22 08:41 98 F 92 18 130/90 100 05/17/22 06:49 97.2 F L 87 18 118/72 100 05/17/22 05:31 93 20 115/83 100 05/17/22 04:57 93 20 128/77 99 05/17/22 04:28 50 05/17/22 04:17 107 H 26 H 115/96 99 Intake and Output 05/16/22 05/17/22 05/17/22 22:59 06:59 14:59 Intake Total 6.811 887.372 Output Total 1725 Balance 6.811 -837.628 Intake: IV 800 Piperacillin-Tazobactam 3 100 .375 gm In Sodium Chloride 0.9% 100 ml @ 25 mls/hr IVPB Q8HR [facility] Rx# :[id number] Potassium Chloride 10 meq 100 In Water For Injection 1 100ml.bag @ 100 mls/hr IVPB Q1HR [facility] Rx#: [id number] Sodium Chloride 0.9% 1, 600 000 ml @ 200 mls/hr IV . Q5H [facility] Rx#:[id number] Intake, IV Titration 6.811 87.372 Amount propofoL 1,000 mg In 6.811 87.372 Empty Bag 1 bag @ 15 MCG/ KG/MIN 4.286 mls/hr IV . [id number] [facility] Rx#:[id number] Output: Urine 1325 Emesis 400 Other: Voiding Method Indwelling Catheter Weight 47.627 kg 47.627 kg Results CBC & Chem 7: 05/17/22 04:51 05/17/22 09:16 Labs: Abnormal Lab Results - Last 24 Hours (Table) 05/17/22 05/17/22 05/17/22 Range/Units 04:36 04:51 04:51 WBC (3.8-10.6) k/uL Hgb (13.0-17.5) gm/dL Hct (39.0-53.0) % MCV (80.0-100.0) fL MCHC (31.0-37.0) g/dL Neutrophils # (Manual) (1.3-7.7) k/uL ABG pH (7.35-7.45) ABG pCO2 (35-45) mmHg ABG pO2 (83-108) mmHg ABG HCO3 (21-25) mmol/L ABG Total CO2 (19-24) mmol/L ABG O2 Saturation (94-97) % VBG pH (7.31-7.41) VBG pCO2 (37-51) mmHg VBG HCO3 (24-28) mmol/L Chloride (98-107) mmol/L Carbon Dioxide (22-30) mmol/L BUN (9-20) mg/dL Creatinine (0.66-1.25) mg/dL Glucose (74-99) mg/dL POC Glucose (mg/dL) >600 H (70-110) mg/dL Plasma Lactic Acid David 6.6 H* (0.7-2.0) mmol/L Phosphorus (2.5-4.5) mg/dL Magnesium (1.6-2.3) mg/dL Ammonia 73 H (<30) umol/L Lipase 349 H (23-300) U/L Urine Protein (Negative) Urine Glucose (UA) (Negative) Urine Ketones (Negative) Urine Blood (Negative) Urine Bacteria (None) /hpf Urine Mucus (None) /hpf 05/17/22 05/17/22 05/17/22 Range/Units 04:51 04:51 04:52 WBC 12.4 H (3.8-10.6) k/uL Hgb 18.4 H (13.0-17.5) gm/dL Hct 61.3 H* (39.0-53.0) % MCV 109.4 H (80.0-100.0) fL MCHC 30.1 L (31.0-37.0) g/dL Neutrophils # (Manual) 9.10 H (1.3-7.7) k/uL ABG pH (7.35-7.45) ABG pCO2 (35-45) mmHg ABG pO2 (83-108) mmHg ABG HCO3 (21-25) mmol/L ABG Total CO2 (19-24) mmol/L ABG O2 Saturation (94-97) % VBG pH (7.31-7.41) VBG pCO2 (37-51) mmHg VBG HCO3 (24-28) mmol/L Chloride (98-107) mmol/L Carbon Dioxide <5 L* (22-30) mmol/L BUN 21 H (9-20) mg/dL Creatinine 2.07 H (0.66-1.25) mg/dL Glucose 794 H* (74-99) mg/dL POC Glucose (mg/dL) (70-110) mg/dL Plasma Lactic Acid David (0.7-2.0) mmol/L Phosphorus (2.5-4.5) mg/dL Magnesium 3.0 H (1.6-2.3) mg/dL Ammonia (<30) umol/L Lipase (23-300) U/L Urine Protein 2+ H (Negative) Urine Glucose (UA) 4+ H (Negative) Urine Ketones 4+ H (Negative) Urine Blood Small H (Negative) Urine Bacteria Rare H (None) /hpf Urine Mucus Rare H (None) /hpf 05/17/22 05/17/22 05/17/22 Range/Units 05:27 06:50 07:52 WBC (3.8-10.6) k/uL Hgb (13.0-17.5) gm/dL Hct (39.0-53.0) % MCV (80.0-100.0) fL MCHC (31.0-37.0) g/dL Neutrophils # (Manual) (1.3-7.7) k/uL ABG pH <6.80 L* (7.35-7.45) ABG pCO2 16 L* (35-45) mmHg ABG pO2 256 H (83-108) mmHg ABG HCO3 3 L* (21-25) mmol/L ABG Total CO2 3 L (19-24) mmol/L ABG O2 Saturation 99.3 H (94-97) % VBG pH (7.31-7.41) VBG pCO2 (37-51) mmHg VBG HCO3 (24-28) mmol/L Chloride (98-107) mmol/L Carbon Dioxide (22-30) mmol/L BUN (9-20) mg/dL Creatinine (0.66-1.25) mg/dL Glucose (74-99) mg/dL POC Glucose (mg/dL) >600 H >600 H (70-110) mg/dL Plasma Lactic Acid David (0.7-2.0) mmol/L Phosphorus (2.5-4.5) mg/dL Magnesium (1.6-2.3) mg/dL Ammonia (<30) umol/L Lipase (23-300) U/L Urine Protein (Negative) Urine Glucose (UA) (Negative) Urine Ketones (Negative) Urine Blood (Negative) Urine Bacteria (None) /hpf Urine Mucus (None) /hpf 05/17/22 05/17/22 05/17/22 Range/Units 09:16 09:16 09:16 WBC (3.8-10.6) k/uL Hgb (13.0-17.5) gm/dL Hct (39.0-53.0) % MCV (80.0-100.0) fL MCHC (31.0-37.0) g/dL Neutrophils # (Manual) (1.3-7.7) k/uL ABG pH (7.35-7.45) ABG pCO2 (35-45) mmHg ABG pO2 (83-108) mmHg ABG HCO3 (21-25) mmol/L ABG Total CO2 (19-24) mmol/L ABG O2 Saturation (94-97) % VBG pH 7.05 L* (7.31-7.41) VBG pCO2 11 L* (37-51) mmHg VBG HCO3 3 L* (24-28) mmol/L Chloride 115 H (98-107) mmol/L Carbon Dioxide <5 L* (22-30) mmol/L BUN 26 H (9-20) mg/dL Creatinine 1.75 H (0.66-1.25) mg/dL Glucose 797 H* (74-99) mg/dL POC Glucose (mg/dL) (70-110) mg/dL Plasma Lactic Acid David 2.4 H* (0.7-2.0) mmol/L Phosphorus 5.8 H (2.5-4.5) mg/dL Magnesium (1.6-2.3) mg/dL Ammonia (<30) umol/L Lipase (23-300) U/L Urine Protein (Negative) Urine Glucose (UA) (Negative) Urine Ketones (Negative) Urine Blood (Negative) Urine Bacteria (None) /hpf Urine Mucus (None) /hpf 05/17/22 05/17/22 05/17/22 Range/Units 09:16 10:08 11:09 WBC (3.8-10.6) k/uL Hgb (13.0-17.5) gm/dL Hct (39.0-53.0) % MCV (80.0-100.0) fL MCHC (31.0-37.0) g/dL Neutrophils # (Manual) (1.3-7.7) k/uL ABG pH (7.35-7.45) ABG pCO2 (35-45) mmHg ABG pO2 (83-108) mmHg ABG HCO3 (21-25) mmol/L ABG Total CO2 (19-24) mmol/L ABG O2 Saturation (94-97) % VBG pH (7.31-7.41) VBG pCO2 (37-51) mmHg VBG HCO3 (24-28) mmol/L Chloride (98-107) mmol/L Carbon Dioxide (22-30) mmol/L BUN (9-20) mg/dL Creatinine (0.66-1.25) mg/dL Glucose (74-99) mg/dL POC Glucose (mg/dL) >600 H 569 H 476 H (70-110) mg/dL Plasma Lactic Acid David (0.7-2.0) mmol/L Phosphorus (2.5-4.5) mg/dL Magnesium (1.6-2.3) mg/dL Ammonia (<30) umol/L Lipase (23-300) U/L Urine Protein (Negative) Urine Glucose (UA) (Negative) Urine Ketones (Negative) Urine Blood (Negative) Urine Bacteria (None) /hpf Urine Mucus (None) /hpf 05/17/22 Range/Units 12:08 WBC (3.8-10.6) k/uL Hgb (13.0-17.5) gm/dL Hct (39.0-53.0) % MCV (80.0-100.0) fL MCHC (31.0-37.0) g/dL Neutrophils # (Manual) (1.3-7.7) k/uL ABG pH (7.35-7.45) ABG pCO2 (35-45) mmHg ABG pO2 (83-108) mmHg ABG HCO3 (21-25) mmol/L ABG Total CO2 (19-24) mmol/L ABG O2 Saturation (94-97) % VBG pH (7.31-7.41) VBG pCO2 (37-51) mmHg VBG HCO3 (24-28) mmol/L Chloride (98-107) mmol/L Carbon Dioxide (22-30) mmol/L BUN (9-20) mg/dL Creatinine (0.66-1.25) mg/dL Glucose (74-99) mg/dL POC Glucose (mg/dL) 441 H (70-110) mg/dL Plasma Lactic Acid David (0.7-2.0) mmol/L Phosphorus (2.5-4.5) mg/dL Magnesium (1.6-2.3) mg/dL Ammonia (<30) umol/L Lipase (23-300) U/L Urine Protein (Negative) Urine Glucose (UA) (Negative) Urine Ketones (Negative) Urine Blood (Negative) Urine Bacteria (None) /hpf Urine Mucus (None) /hpf
[2022-05-17] MEDS: IPRATROPIUM-ALBUTEROL 3 ML NEB INHALATION SCH ×4 (12:19→23:14)
[2022-05-17 12:59] LABS: Glucose,Whole Blood 396 mg/dL (70-110)
[2022-05-17 13:43] LABS: Glucose,Whole Blood 440 mg/dL (70-110)
[2022-05-17 13:48] LABS: Glucose,Whole Blood 371 mg/dL (70-110)
[2022-05-17 13:49] LABS: Phosphorus 2.1 mg/dL (2.5-4.5); Potassium 4.3 mmol/L (3.5-5.1)
[2022-05-17] MEDS ORDERED: POTASSIUM PHOSPHATE 10 MMOL in SODIUM CHLORIDE 0.9% 250 ML IV ONE (14:02)
[2022-05-17] MEDS ORDERED: Phosphorus Replacement Protoco 1 EACH MISC MISCELLANE PRN (14:02)
[2022-05-17] MEDS: D5-0.45% NACL WITH KCL 20MEQ/L 1,000 ML IV SCH ×2 (14:41→22:07)
[2022-05-17 15:08] LABS: Glucose,Whole Blood 363 mg/dL (70-110)
[2022-05-17 16:07] LABS: Glucose,Whole Blood 395 mg/dL (70-110)
[2022-05-17 17:11] LABS: Glucose,Whole Blood 366 mg/dL (70-110)
[2022-05-17 18:05] LABS: Glucose,Whole Blood 316 mg/dL (70-110)
[2022-05-17 18:44] LABS: Calcium 8.1 mg/dL (8.4-10.2); Potassium 4.1 mmol/L (3.5-5.1)
[2022-05-17 19:01] LABS: Glucose,Whole Blood 301 mg/dL (70-110)
[2022-05-17] MEDS: SODIUM CHLORIDE 0.9% 80 ML with fentaNYL (PF) 1,000 MCG IV SCH ×2 (19:01)
[2022-05-17 20:03] LABS: Glucose,Whole Blood 304 mg/dL (70-110)
[2022-05-17 21:25] LABS: Glucose,Whole Blood 345 mg/dL (70-110)
[2022-05-17 22:12] LABS: Glucose,Whole Blood 278 mg/dL (70-110)
[2022-05-17 23:08] LABS: Glucose,Whole Blood 263 mg/dL (70-110)
[2022-05-18 00:04] LABS: Glucose,Whole Blood 246 mg/dL (70-110)
[2022-05-18 00:39] LABS: Potassium 3.2 mmol/L (3.5-5.1)
[2022-05-18] MEDS: HYDROmorphone 0.5 MG/0.5 ML SYRINGE IVP PRN ×3 (01:03→10:32)
[2022-05-18 01:18] LABS: Glucose,Whole Blood 237 mg/dL (70-110)
[2022-05-18 02:06] LABS: Glucose,Whole Blood 233 mg/dL (70-110)
[2022-05-18] MEDS: IPRATROPIUM-ALBUTEROL 3 ML NEB INHALATION SCH ×6 (02:54→19:29)
[2022-05-18 03:00] LABS: Glucose,Whole Blood 214 mg/dL (70-110)
[2022-05-18] MEDS: POTASSIUM BICARBONATE/CIT AC 20 MEQ TABLET.EFF NG-TUBE SCH ×4 (03:00→08:30)
[2022-05-18 04:07] LABS: Glucose,Whole Blood 185 mg/dL (70-110)
[2022-05-18] MEDS: D5-0.45% NACL WITH KCL 20MEQ/L 1,000 ML IV SCH ×2 (04:10→11:07)
[2022-05-18] MEDS: INSULIN REGULAR 100 UNIT in SODIUM CHLORIDE 0.9% 100 ML IV SCH (04:54)
[2022-05-18 05:11] LABS: Glucose,Whole Blood 145 mg/dL (70-110)
[2022-05-18 05:47] LABS: ABG Base Excess -10.2 mmol/L; ABG HCO3 18 mmol/L (21-25); ABG PCO2 43 mmHg (35-45); ABG PH 7.22 (7.35-7.45); ABG PO2 221 mmHg (83-108); ABG TCO2 19 mmol/L (19-24); Allen Test Performed? Yes
[2022-05-18 06:04] LABS: Basophils % (A) 0 %; Eosinophils % (A) 0 %; HCT 36.2 % (39.0-53.0); Lymphocytes # (A) 1.3 k/uL (1.0-4.8); Lymphocytes % (A) 19 %; MCH 32.9 pg (25.0-35.0); MCHC 34.2 g/dL (31.0-37.0); Mean Platelet Volume 8.5; Monocytes # (A) 0.3 k/uL (0-1.0); Monocytes % (A) 5 %; Neutrophils # (A) 5.3 k/uL (1.3-7.7); Neutrophils % (A) 75 %; Platelet Count 216 k/uL (150-450); RBC 3.76 m/uL (4.30-5.90); RDW 12.2 % (11.5-15.5)
[2022-05-18 06:06] LABS: HGB 12.4 gm/dL (13.0-17.5); MCV 96.2 fL (80.0-100.0)
[2022-05-18 06:13] LABS: Glucose,Whole Blood 117 mg/dL (70-110)
[2022-05-18 06:24] LABS: Calcium 7.9 mg/dL (8.4-10.2); Phosphorus 1.2 mg/dL (2.5-4.5); Potassium 3.4 mmol/L (3.5-5.1)
[2022-05-18] MEDS ORDERED: Potassium Replacement Protocol 1 EACH MISC MISCELLANE PRN (06:29)
[2022-05-18 07:06] LABS: Glucose,Whole Blood 113 mg/dL (70-110)
[2022-05-18 08:24] LABS: Glucose,Whole Blood 170 mg/dL (70-110)
[2022-05-18] MEDS: POTASSIUM PHOSPHATE 10 MMOL in SODIUM CHLORIDE 0.9% 250 ML IV SCH ×3 (08:31→12:40)
[2022-05-18] MEDS: PIPERACILLIN-TAZOBACTAM 3.375 GM in SODIUM CHLORIDE 0.9% 100 ML IVPB SCH ×2 (08:39→16:22)
[2022-05-18] MEDS: PANTOPRAZOLE 40 MG/10 ML VIAL IVP SCH (08:39)
[2022-05-18] MEDS: HEPARIN SODIUM,PORCINE/PF 5,000 UNIT/0.5 ML SYRINGE SQ SCH ×2 (08:39→21:29)
[2022-05-18] MEDS ORDERED: PANTOPRAZOLE 40 MG/10 ML VIAL IVP SCH (09:00)
[2022-05-18 09:17] LABS: Glucose,Whole Blood 210 mg/dL (70-110)
--- NOTE | 2022-05-18 09:30 | XR ---
EXAMINATION TYPE: XR chest 1V portable DATE OF EXAM: 05/18/2022 5:12 AM COMPARISON: Chest radiographs from 05/09/2022 TECHNIQUE: XR chest 1V portable Portable AP radiograph of the chest. CLINICAL INDICATION:Male, 42 years old with history of follow up; FINDINGS: Lungs/Pleura: There is no evidence of pleural effusion, focal consolidation, or pneumothorax. Pulmonary vascularity: Unremarkable. Heart/mediastinum: Cardiomediastinal silhouette is unremarkable. Musculoskeletal: No acute osseous pathology. Lines/Tubes: Endotracheal tube with distal tip 2.6 cm above the ashutosh. Nasogastric tube with its distal tip and side-port projecting under the diaphragm. IMPRESSION: No acute cardiopulmonary disease/process. Stable support tubes.
[2022-05-18 10:26] LABS: Glucose,Whole Blood 121 mg/dL (70-110)
[2022-05-18] MEDS ORDERED: HALOPERIDOL LACTATE 5 MG/ML 1 ML VIAL IVP STA (10:38)
[2022-05-18 11:09] LABS: Glucose,Whole Blood 86 mg/dL (70-110)
[2022-05-18 11:32] LABS: Glucose,Whole Blood 82 mg/dL (70-110)
[2022-05-18] MEDS ORDERED: HALOPERIDOL LACTATE 5 MG/ML 1 ML VIAL IVP PRN (11:49)
[2022-05-18 11:59] LABS: Glucose,Whole Blood 91 mg/dL (70-110)
--- NOTE | 2022-05-18 12:02 | P.PN ---
Subjective Progress Note Date: 05/18/22 Principal diagnosis: Diabetic ketoacidosis, respiratory failure. Pulmonary consult dated 05/17/2022. 42-year-old male with no significant past medical history other than suspected diabetes, who apparently was found unresponsive with mental status changes, by his . Apparently he was lying on the floor next to the bed. He was unable to respond or speak. EMS was called, and the patient was transported into the emergency department. In the emergency department, he did receive Narcan, without any change. The patient was intubated in the emergency room. The patient has no significant past medical history according to his , and takes no medications on a routine basis at home. The patient does smoke cigarettes. The patient recently failed his Department of [employer] examination because of elevated blood sugar. For that reason, the states that they suspected diabetes. Apparently no alcohol use. No family doctor as mentioned above. He seen in the emergency room, trauma room 1. He is intubated and mechanically ventilated. He is getting propofol at 35 mcg/kg/m, and saline via bolus. An insulin drip is going to be started. He has an NG tube in place, a Hedrick catheter in place, and an endotracheal tube. Ventilator settings include the vo lume assist control, rate 16, tidal volume 400, FiO2 50%, and PEEP of 5. White count 12.4, hemoglobin 18.4, hematocrit 61.3, and platelet count 395,000. Blood gases show a PaO2 of 256, pCO2 of 16, and a pH is 6.80. Sodium 140, potassium 4.5, chlorides 105, CO2 less than 5, BUN 21, and creatinine 2.07. Glucose was 794. Lactic acid 6.6. Magnesium 3. Lipase 349. Drug screen was negative. Brain CT was negative save for pansinusitis. Chest x-ray shows a properly placed NG tube, and a properly placed endotracheal tube. It's 3.5 cm above the ashutosh. Progress note dated 05/18/2022. 42-year-old male seen in consultation yesterday. The patient was admitted with a diagnosis of severe diabetic ketoacidosis, metabolic acidosis, severe dehydration, and respiratory failure. The patient was actually intubated in the emergency department. The patient has no known medical history, other than suspected diabetes. He does smoke cigarettes. When he, he is on volume assist control, rate 16, tidal volume 400, FiO2 50%, and PEEP of 5. Blood gases show pO2 221, pCO2 43, and pH is 7.22. The patient is on propofol at 30 mcg/kg/m, D5 with half-normal saline with 20 mEq of potassium at 150 mL an hour, and saline at KVO. His most recent bicarbonate concentration was 17, glucose 113, and an ion gap was 3. We'll attempt a daily interruption of sedation and a spontaneous breathing trial today. White count 7, hemoglobin 12.4, hematocrit 36.2, and platelet count normal. Most recent blood gas is noted. Sodium 146, potassium 3.4, chlorides 126, CO2 17, anion gap 3, BUN 27, and creatinine 2.02. Hemoglobin A1c was 16.8. Lipase was 349. The patient's chest x-ray was normal. Objective - Vital Signs Vital signs: Vital Signs Temp 98.5 F 05/18/22 08:00 Pulse 97 05/18/22 11:00 Resp 16 05/18/22 11:00 BP 101/65 05/18/22 11:00 Pulse Ox 98 05/18/22 11:00 FiO2 50 05/18/22 08:00 Intake & Output 05/17/22 05/18/22 05/18/22 18:59 06:59 18:59 Intake Total 2091.290 2076.559 1206.698 Output Total 2325 860 265 Balance -748.642 9116.559 941.698 Weight 47.627 kg 47.3 kg Intake: IV 1900 1900 1100 D5-0.45% NaCl with KCl 600 1800 500 20Meq/l 1,000 ml @ 150 mls/hr IV .[id number] [facility] Rx# :[id number] Piperacillin-Tazobactam 3 100 100 100 .375 gm In Sodium Chloride 0.9% 100 ml @ 25 mls/hr IVPB Q8HR [facility] Rx# :[id number] Potassium Chloride 10 meq 200 In Water For Injection 1 100ml.bag @ 100 mls/hr IVPB Q1HR [facility] Rx#: [id number] Potassium Phosphate 10 500 mmol In Sodium Chloride 0 .9% 250 ml @ 125 mls/hr IV ONCE ONE Rx#:[id number] Sodium Chloride 0.9% 1, 1000 000 ml @ 200 mls/hr IV . Q5H [facility] Rx#:[id number] Intake, IV Titration 191.290 176.559 106.698 Amount Insulin Regular 100 unit 50.593 127.882 15.490 In Sodium Chloride 0.9% 100 ml @ 0.1 UNITS/KG/HR 4.81 mls/hr IV .Q21H [facility] Rx#:[id number] propofoL 1,000 mg In 140.697 48.677 91.208 Empty Bag 1 bag @ 15 MCG/ KG/MIN 4.286 mls/hr IV . [id number] [facility] Rx#:[id number] Output: Urine 1925 860 265 Emesis 400 Other: Voiding Method Indwelling Catheter Indwelling Catheter - Exam No acute distress, sedated, with an orally placed endotracheal tube and NG tube. HEENT examination is grossly unremarkable. Neck supple. Full range of motion. No adenopathy thyromegaly or neck vein distention. Cardiovascular examination reveals regular rhythm rate. S1-S2 normal. No S3 or S4. No discernible murmur noted. Heart rate 90 bpm. Lungs reveal clear breath sounds. Breath sounds are equal bilaterally. No adventitious lung sounds including wheezes rhonchi or crackles. Saturations are 98%. Abdomen soft bowel sounds are heard. No masses or tenderness. Extremities are intact. No cyanosis clubbing or edema. Skin is without rash or lesion. Neurologic examination cannot be properly assessed. - Labs CBC & Chem 7: 05/18/22 05:12 05/18/22 05:12 Labs: Abnormal Lab Results - Last 24 Hours (Table) 05/17/22 05/17/22 05/17/22 Range/Units 12:08 12:58 13:22 RBC (4.30-5.90) m/uL Hgb (13.0-17.5) gm/dL Hct (39.0-53.0) % ABG pH (7.35-7.45) ABG pO2 (83-108) mmHg ABG HCO3 (21-25) mmol/L ABG O2 Saturation (94-97) % Sodium (137-145) mmol/L Potassium (3.5-5.1) mmol/L Chloride 120 H (98-107) mmol/L Carbon Dioxide 7 L* (22-30) mmol/L BUN 28 H (9-20) mg/dL Creatinine 1.60 H (0.66-1.25) mg/dL Glucose 428 H (74-99) mg/dL POC Glucose (mg/dL) 441 H 396 H (70-110) mg/dL Hemoglobin A1c (0.0-6.0) % Calcium (8.4-10.2) mg/dL Phosphorus 2.1 L (2.5-4.5) mg/dL 05/17/22 05/17/22 05/17/22 Range/Units 13:42 13:46 15:06 RBC (4.30-5.90) m/uL Hgb (13.0-17.5) gm/dL Hct (39.0-53.0) % ABG pH (7.35-7.45) ABG pO2 (83-108) mmHg ABG HCO3 (21-25) mmol/L ABG O2 Saturation (94-97) % Sodium (137-145) mmol/L Potassium (3.5-5.1) mmol/L Chloride (98-107) mmol/L Carbon Dioxide (22-30) mmol/L BUN (9-20) mg/dL Creatinine (0.66-1.25) mg/dL Glucose (74-99) mg/dL POC Glucose (mg/dL) 440 H 371 H 363 H (70-110) mg/dL Hemoglobin A1c (0.0-6.0) % Calcium (8.4-10.2) mg/dL Phosphorus (2.5-4.5) mg/dL 05/17/22 05/17/22 05/17/22 Range/Units 16:05 17:10 17:55 RBC (4.30-5.90) m/uL Hgb (13.0-17.5) gm/dL Hct (39.0-53.0) % ABG pH (7.35-7.45) ABG pO2 (83-108) mmHg ABG HCO3 (21-25) mmol/L ABG O2 Saturation (94-97) % Sodium (137-145) mmol/L Potassium (3.5-5.1) mmol/L Chloride 124 H (98-107) mmol/L Carbon Dioxide 14 L (22-30) mmol/L BUN 30 H (9-20) mg/dL Creatinine 1.81 H (0.66-1.25) mg/dL Glucose 340 H (74-99) mg/dL POC Glucose (mg/dL) 395 H 366 H (70-110) mg/dL Hemoglobin A1c (0.0-6.0) % Calcium 8.1 L (8.4-10.2) mg/dL Phosphorus (2.5-4.5) mg/dL 05/17/22 05/17/22 05/17/22 Range/Units 18:03 19:00 20:02 RBC (4.30-5.90) m/uL Hgb (13.0-17.5) gm/dL Hct (39.0-53.0) % ABG pH (7.35-7.45) ABG pO2 (83-108) mmHg ABG HCO3 (21-25) mmol/L ABG O2 Saturation (94-97) % Sodium (137-145) mmol/L Potassium (3.5-5.1) mmol/L Chloride (98-107) mmol/L Carbon Dioxide (22-30) mmol/L BUN (9-20) mg/dL Creatinine (0.66-1.25) mg/dL Glucose (74-99) mg/dL POC Glucose (mg/dL) 316 H 301 H 304 H (70-110) mg/dL Hemoglobin A1c (0.0-6.0) % Calcium (8.4-10.2) mg/dL Phosphorus (2.5-4.5) mg/dL 05/17/22 05/17/22 05/17/22 Range/Units 21:24 22:10 23:07 RBC (4.30-5.90) m/uL Hgb (13.0-17.5) gm/dL Hct (39.0-53.0) % ABG pH (7.35-7.45) ABG pO2 (83-108) mmHg ABG HCO3 (21-25) mmol/L ABG O2 Saturation (94-97) % Sodium (137-145) mmol/L Potassium (3.5-5.1) mmol/L Chloride (98-107) mmol/L Carbon Dioxide (22-30) mmol/L BUN (9-20) mg/dL Creatinine (0.66-1.25) mg/dL Glucose (74-99) mg/dL POC Glucose (mg/dL) 345 H 278 H 263 H (70-110) mg/dL Hemoglobin A1c (0.0-6.0) % Calcium (8.4-10.2) mg/dL Phosphorus (2.5-4.5) mg/dL 05/17/22 05/18/22 05/18/22 Range/Units 23:36 00:03 01:16 RBC (4.30-5.90) m/uL Hgb (13.0-17.5) gm/dL Hct (39.0-53.0) % ABG pH (7.35-7.45) ABG pO2 (83-108) mmHg ABG HCO3 (21-25) mmol/L ABG O2 Saturation (94-97) % Sodium (137-145) mmol/L Potassium 3.2 L (3.5-5.1) mmol/L Chloride 125 H (98-107) mmol/L Carbon Dioxide 17 L (22-30) mmol/L BUN 29 H (9-20) mg/dL Creatinine 1.94 H (0.66-1.25) mg/dL Glucose 271 H (74-99) mg/dL POC Glucose (mg/dL) 246 H 237 H (70-110) mg/dL Hemoglobin A1c (0.0-6.0) % Calcium 8.0 L (8.4-10.2) mg/dL Phosphorus (2.5-4.5) mg/dL 05/18/22 05/18/22 05/18/22 Range/Units 02:04 02:58 04:04 RBC (4.30-5.90) m/uL Hgb (13.0-17.5) gm/dL Hct (39.0-53.0) % ABG pH (7.35-7.45) ABG pO2 (83-108) mmHg ABG HCO3 (21-25) mmol/L ABG O2 Saturation (94-97) % Sodium (137-145) mmol/L Potassium (3.5-5.1) mmol/L Chloride (98-107) mmol/L Carbon Dioxide (22-30) mmol/L BUN (9-20) mg/dL Creatinine (0.66-1.25) mg/dL Glucose (74-99) mg/dL POC Glucose (mg/dL) 233 H 214 H 185 H (70-110) mg/dL Hemoglobin A1c (0.0-6.0) % Calcium (8.4-10.2) mg/dL Phosphorus (2.5-4.5) mg/dL 05/18/22 05/18/22 05/18/22 Range/Units 05:08 05:12 05:12 RBC 3.76 L (4.30-5.90) m/uL Hgb 12.4 L D (13.0-17.5) gm/dL Hct 36.2 L (39.0-53.0) % ABG pH (7.35-7.45) ABG pO2 (83-108) mmHg ABG HCO3 (21-25) mmol/L ABG O2 Saturation (94-97) % Sodium 146 H (137-145) mmol/L Potassium 3.4 L (3.5-5.1) mmol/L Chloride 126 H (98-107) mmol/L Carbon Dioxide 17 L (22-30) mmol/L BUN 27 H (9-20) mg/dL Creatinine 2.02 H (0.66-1.25) mg/dL Glucose 127 H (74-99) mg/dL POC Glucose (mg/dL) 145 H (70-110) mg/dL Hemoglobin A1c (0.0-6.0) % Calcium 7.9 L (8.4-10.2) mg/dL Phosphorus 1.2 L (2.5-4.5) mg/dL 05/18/22 05/18/22 05/18/22 Range/Units 05:12 05:44 06:11 RBC (4.30-5.90) m/uL Hgb (13.0-17.5) gm/dL Hct (39.0-53.0) % ABG pH 7.22 L (7.35-7.45) ABG pO2 221 H (83-108) mmHg ABG HCO3 18 L (21-25) mmol/L ABG O2 Saturation 100.0 H (94-97) % Sodium (137-145) mmol/L Potassium (3.5-5.1) mmol/L Chloride (98-107) mmol/L Carbon Dioxide (22-30) mmol/L BUN (9-20) mg/dL Creatinine (0.66-1.25) mg/dL Glucose (74-99) mg/dL POC Glucose (mg/dL) 117 H (70-110) mg/dL Hemoglobin A1c 16.8 H (0.0-6.0) % Calcium (8.4-10.2) mg/dL Phosphorus (2.5-4.5) mg/dL 05/18/22 05/18/22 05/18/22 Range/Units 07:04 08:23 09:15 RBC (4.30-5.90) m/uL Hgb (13.0-17.5) gm/dL Hct (39.0-53.0) % ABG pH (7.35-7.45) ABG pO2 (83-108) mmHg ABG HCO3 (21-25) mmol/L ABG O2 Saturation (94-97) % Sodium (137-145) mmol/L Potassium (3.5-5.1) mmol/L Chloride (98-107) mmol/L Carbon Dioxide (22-30) mmol/L BUN (9-20) mg/dL Creatinine (0.66-1.25) mg/dL Glucose (74-99) mg/dL POC Glucose (mg/dL) 113 H 170 H 210 H (70-110) mg/dL Hemoglobin A1c (0.0-6.0) % Calcium (8.4-10.2) mg/dL Phosphorus (2.5-4.5) mg/dL 05/18/22 Range/Units 10:25 RBC (4.30-5.90) m/uL Hgb (13.0-17.5) gm/dL Hct (39.0-53.0) % ABG pH (7.35-7.45) ABG pO2 (83-108) mmHg ABG HCO3 (21-25) mmol/L ABG O2 Saturation (94-97) % Sodium (137-145) mmol/L Potassium (3.5-5.1) mmol/L Chloride (98-107) mmol/L Carbon Dioxide (22-30) mmol/L BUN (9-20) mg/dL Creatinine (0.66-1.25) mg/dL Glucose (74-99) mg/dL POC Glucose (mg/dL) 121 H (70-110) mg/dL Hemoglobin A1c (0.0-6.0) % Calcium (8.4-10.2) mg/dL Phosphorus (2.5-4.5) mg/dL Microbiology - Last 24 Hours (Table) 05/17/22 15:40 Gram Stain - Preliminary Sputum Sputum Culture - Preliminary Assessment and Plan Assessment: Acute diabetic ketoacidosis, and a patient with suspected diabetes, based on a failed DOT examination. S/P intubation and mechanical ventilation for acute respiratory failure and inability to protect his airway, 05/17/2022. Acute kidney injury. Severe anion gap metabolic acidosis. Severe dehydration. Acute lactic acidemia. Polycythemia secondary to dehydration. History of tobacco use. Plan: Plan dated 05/17/2022. The patient is seen in the emergency room, trauma room 1. The patient is currently connected to mechanical ventilator. He sedated. The patient will be given a fluid bolus, and also on insulin drip. The patient has an NG tube in place, Hedrick catheter in place, and endotracheal tube in place. The patient has no significant past medical history although the family suspected diabetes, based on a failed DOT examination. The patient does not have a family doctor. The patient does smoke cigarettes. The patient does not drink alcohol or take illicit drugs. The patient does not take any prescription medications at home on a regular basis. The patient is admitted to the intensive care unit. Plan dated 05/18/2022. The patient can be weaned, and potentially extubated today. The patient's laboratory data are much improved. The patient's chest x-ray is normal. He remains on propofol, and IV fluids. Labs, x-rays, and medications are reviewed. Prognosis is certainly guarded. We will continue to follow the patient and make recommendations along the way. The patient will have a daily interruption of sedation today, and a breathing trial today. Time with Patient: Greater than 30
[2022-05-18 13:16] LABS: Glucose,Whole Blood 169 mg/dL (70-110)
[2022-05-18 14:08] LABS: Glucose,Whole Blood 169 mg/dL (70-110)
[2022-05-18 15:11] LABS: Glucose,Whole Blood 189 mg/dL (70-110)
[2022-05-18 16:14] LABS: Glucose,Whole Blood 124 mg/dL (70-110)
[2022-05-18] MEDS: SODIUM CHLORIDE 0.9% 80 ML with fentaNYL (PF) 1,000 MCG IV SCH ×2 (16:18)
[2022-05-18] MEDS: NICOTINE 21MG/24HR PATCH TRANSDERM SCH (16:22)
[2022-05-18] MEDS ORDERED: LORazepam 2 MG/ML INJ IV PRN (16:53)
[2022-05-18] MEDS ORDERED: DEXTROSE 50% SYRINGE 50 ML IVP PRN ×2 (16:56)
--- NOTE | 2022-05-18 17:07 | P.PN ---
Subjective Progress Note Date: 05/18/22 (patient seen at 1110) Patient is a 42-year-old male with no significant past medical history pre senting for altered mentation, and dehydration. Apparently the way states he was diagnosed with hyperglycemia in January but was not started on any medications. In the emergency department he underwent an extensive evaluation. He was tachypneic and tachycardic but was initially on room air. Laboratory analysis was significant for white blood cell count 12.4, hemoglobin 18.4, hematocrit 61.3, carbon dioxide less than 5, BUN 21, creatinine 2.07, glucose 794, lactic acid 6.6, magnesium 3, ammonia 73, and lipase 349. Initial arterial blood gas showed a pH of less than 6.8. Patient ultimately required intubation. He was placed on IV fluids and an insulin drip for DKA. Chest x-ray demons trated left lower lobe atelectasis and some malposition of the endotracheal tube. CT of the brain showed pansinusitis. Repeat chest x-ray showed endotracheal tube in good position. He was admitted to the ICU. Pulmonary critical care was consulted. He was continued on DKA protocol and his gap was closed. He was extubated on 05/18 but was agitated. Patient seen and examined at bedside. He is sleeping and just received haldol for agitation. He was talking but was not redirectable per nursing. He speaks unintelligibly when moved and falls right back asleep. present at bedside and updated on plan of care including need for multiple time a day insulin injection, will need a PCP and treasury representative on discharge. 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 General: nontoxic, no distress, appears at stated age Derm: warm, dry Head: atraumatic, normocephalic, symmetric Eyes: EOMI, no lid lag, anicteric sclera Mouth: no lip lesion, mucus membranes moist Cardiovascular: S1S2 reg, no murmur, positive posterior tibial pulse bilateral, Lungs: CTA bilateral, no rhonchi, no rales , no accessory muscle use Abdominal: soft, nontender to palpation, no guarding, no appreciable organomegaly Ext: no gross muscle atrophy, no edema, no contractures Neuro: CN II-XI grossly intact, moving all 4 extremities independently. Psych: sedated at this time Assessment/Plan: Diabetic ketoacidosis Acute metabolic encephalopathy New-onset diabetes mellitus Severe dehydration resulting in Acute kidney injury Pansinusitis - IVF fluids - continue insulin gtt as unable to eat, D5 0.45NS, and 1 hour accucheck - follow BS - A1C 16.8 - IVF - monitor urine output Hypokalemia Hypophosphatemia -Replace and recheck in a.m. Nicotine dependence - replacement Lactic acidosis, resolved Polycythemia secondary to dehydration, resolved Acute respiratory failure Status s/p intubation and mechanical ventilation DVT prophylaxis: Subcu heparin Anticipated discharge date: Pending clinical course Anticipated discharge place: Pending clinical course A total of 35 minutes was spent on the care of this complex patient more than 50% of the time was spent in counseling and care coordination. Objective - Vital Signs Vital signs: Vital Signs Temp 98.8 F 05/18/22 04:00 Pulse 86 05/18/22 07:47 Resp 16 05/18/22 07:00 BP 86/58 05/18/22 07:00 Pulse Ox 99 05/18/22 07:00 FiO2 50 05/18/22 07:20 Intake & Output 05/17/22 05/18/22 05/18/22 18:59 06:59 18:59 Intake Total 2091.290 2076.559 150 Output Total 2325 860 40 Balance -264.479 8967.559 110 Weight 47.627 kg 47.3 kg Intake: IV 1900 1900 150 D5-0.45% NaCl with KCl 600 1800 150 20Meq/l 1,000 ml @ 150 mls/hr IV .[id number] [facility] Rx# :[id number] Piperacillin-Tazobactam 3 100 100 .375 gm In Sodium Chloride 0.9% 100 ml @ 25 mls/hr IVPB Q8HR [facility] Rx# :[id number] Potassium Chloride 10 meq 200 In Water For Injection 1 100ml.bag @ 100 mls/hr IVPB Q1HR [facility] Rx#: [id number] Sodium Chloride 0.9% 1, 1000 000 ml @ 200 mls/hr IV . Q5H [facility] Rx#:[id number] Intake, IV Titration 191.290 176.559 Amount Insulin Regular 100 unit 50.593 127.882 In Sodium Chloride 0.9% 100 ml @ 0.1 UNITS/KG/HR 4.81 mls/hr IV .Q21H [facility] Rx#:[id number] propofoL 1,000 mg In 140.697 48.677 Empty Bag 1 bag @ 15 MCG/ KG/MIN 4.286 mls/hr IV . [id number] [facility] Rx#:[id number] Output: Urine 1925 860 40 Emesis 400 Other: Voiding Method Indwelling Catheter Indwelling Catheter - Labs CBC & Chem 7: 05/18/22 05:12 05/18/22 05:12 Labs: Abnormal Lab Results - Last 24 Hours (Table) 05/17/22 05/17/22 05/17/22 Range/Units 09:16 09:16 09:16 RBC (4.30-5.90) m/uL Hgb (13.0-17.5) gm/dL Hct (39.0-53.0) % ABG pH (7.35-7.45) ABG pO2 (83-108) mmHg ABG HCO3 (21-25) mmol/L ABG O2 Saturation (94-97) % VBG pH 7.05 L* (7.31-7.41) VBG pCO2 11 L* (37-51) mmHg VBG HCO3 3 L* (24-28) mmol/L Sodium (137-145) mmol/L Potassium (3.5-5.1) mmol/L Chloride 115 H (98-107) mmol/L Carbon Dioxide <5 L* (22-30) mmol/L BUN 26 H (9-20) mg/dL Creatinine 1.75 H (0.66-1.25) mg/dL Glucose 797 H* (74-99) mg/dL POC Glucose (mg/dL) (70-110) mg/dL Plasma Lactic Acid David 2.4 H* (0.7-2.0) mmol/L Calcium (8.4-10.2) mg/dL Phosphorus 5.8 H (2.5-4.5) mg/dL 05/17/22 05/17/22 05/17/22 Range/Units 09:16 10:08 11:09 RBC (4.30-5.90) m/uL Hgb (13.0-17.5) gm/dL Hct (39.0-53.0) % ABG pH (7.35-7.45) ABG pO2 (83-108) mmHg ABG HCO3 (21-25) mmol/L ABG O2 Saturation (94-97) % VBG pH (7.31-7.41) VBG pCO2 (37-51) mmHg VBG HCO3 (24-28) mmol/L Sodium (137-145) mmol/L Potassium (3.5-5.1) mmol/L Chloride (98-107) mmol/L Carbon Dioxide (22-30) mmol/L BUN (9-20) mg/dL Creatinine (0.66-1.25) mg/dL Glucose (74-99) mg/dL POC Glucose (mg/dL) >600 H 569 H 476 H (70-110) mg/dL Plasma Lactic Acid David (0.7-2.0) mmol/L Calcium (8.4-10.2) mg/dL Phosphorus (2.5-4.5) mg/dL 05/17/22 05/17/22 05/17/22 Range/Units 12:08 12:58 13:22 RBC (4.30-5.90) m/uL Hgb (13.0-17.5) gm/dL Hct (39.0-53.0) % ABG pH (7.35-7.45) ABG pO2 (83-108) mmHg ABG HCO3 (21-25) mmol/L ABG O2 Saturation (94-97) % VBG pH (7.31-7.41) VBG pCO2 (37-51) mmHg VBG HCO3 (24-28) mmol/L Sodium (137-145) mmol/L Potassium (3.5-5.1) mmol/L Chloride 120 H (98-107) mmol/L Carbon Dioxide 7 L* (22-30) mmol/L BUN 28 H (9-20) mg/dL Creatinine 1.60 H (0.66-1.25) mg/dL Glucose 428 H (74-99) mg/dL POC Glucose (mg/dL) 441 H 396 H (70-110) mg/dL Plasma Lactic Acid David (0.7-2.0) mmol/L Calcium (8.4-10.2) mg/dL Phosphorus 2.1 L (2.5-4.5) mg/dL 05/17/22 05/17/22 05/17/22 Range/Units 13:42 13:46 15:06 RBC (4.30-5.90) m/uL Hgb (13.0-17.5) gm/dL Hct (39.0-53.0) % ABG pH (7.35-7.45) ABG pO2 (83-108) mmHg ABG HCO3 (21-25) mmol/L ABG O2 Saturation (94-97) % VBG pH (7.31-7.41) VBG pCO2 (37-51) mmHg VBG HCO3 (24-28) mmol/L Sodium (137-145) mmol/L Potassium (3.5-5.1) mmol/L Chloride (98-107) mmol/L Carbon Dioxide (22-30) mmol/L BUN (9-20) mg/dL Creatinine (0.66-1.25) mg/dL Glucose (74-99) mg/dL POC Glucose (mg/dL) 440 H 371 H 363 H (70-110) mg/dL Plasma Lactic Acid David (0.7-2.0) mmol/L Calcium (8.4-10.2) mg/dL Phosphorus (2.5-4.5) mg/dL 05/17/22 05/17/22 05/17/22 Range/Units 16:05 17:10 17:55 RBC (4.30-5.90) m/uL Hgb (13.0-17.5) gm/dL Hct (39.0-53.0) % ABG pH (7.35-7.45) ABG pO2 (83-108) mmHg ABG HCO3 (21-25) mmol/L ABG O2 Saturation (94-97) % VBG pH (7.31-7.41) VBG pCO2 (37-51) mmHg VBG HCO3 (24-28) mmol/L Sodium (137-145) mmol/L Potassium (3.5-5.1) mmol/L Chloride 124 H (98-107) mmol/L Carbon Dioxide 14 L (22-30) mmol/L BUN 30 H (9-20) mg/dL Creatinine 1.81 H (0.66-1.25) mg/dL Glucose 340 H (74-99) mg/dL POC Glucose (mg/dL) 395 H 366 H (70-110) mg/dL Plasma Lactic Acid David (0.7-2.0) mmol/L Calcium 8.1 L (8.4-10.2) mg/dL Phosphorus (2.5-4.5) mg/dL 05/17/22 05/17/22 05/17/22 Range/Units 18:03 19:00 20:02 RBC (4.30-5.90) m/uL Hgb (13.0-17.5) gm/dL Hct (39.0-53.0) % ABG pH (7.35-7.45) ABG pO2 (83-108) mmHg ABG HCO3 (21-25) mmol/L ABG O2 Saturation (94-97) % VBG pH (7.31-7.41) VBG pCO2 (37-51) mmHg VBG HCO3 (24-28) mmol/L Sodium (137-145) mmol/L Potassium (3.5-5.1) mmol/L Chloride (98-107) mmol/L Carbon Dioxide (22-30) mmol/L BUN (9-20) mg/dL Creatinine (0.66-1.25) mg/dL Glucose (74-99) mg/dL POC Glucose (mg/dL) 316 H 301 H 304 H (70-110) mg/dL Plasma Lactic Acid David (0.7-2.0) mmol/L Calcium (8.4-10.2) mg/dL Phosphorus (2.5-4.5) mg/dL 05/17/22 05/17/22 05/17/22 Range/Units 21:24 22:10 23:07 RBC (4.30-5.90) m/uL Hgb (13.0-17.5) gm/dL Hct (39.0-53.0) % ABG pH (7.35-7.45) ABG pO2 (83-108) mmHg ABG HCO3 (21-25) mmol/L ABG O2 Saturation (94-97) % VBG pH (7.31-7.41) VBG pCO2 (37-51) mmHg VBG HCO3 (24-28) mmol/L Sodium (137-145) mmol/L Potassium (3.5-5.1) mmol/L Chloride (98-107) mmol/L Carbon Dioxide (22-30) mmol/L BUN (9-20) mg/dL Creatinine (0.66-1.25) mg/dL Glucose (74-99) mg/dL POC Glucose (mg/dL) 345 H 278 H 263 H (70-110) mg/dL Plasma Lactic Acid David (0.7-2.0) mmol/L Calcium (8.4-10.2) mg/dL Phosphorus (2.5-4.5) mg/dL 05/17/22 05/18/22 05/18/22 Range/Units 23:36 00:03 01:16 RBC (4.30-5.90) m/uL Hgb (13.0-17.5) gm/dL Hct (39.0-53.0) % ABG pH (7.35-7.45) ABG pO2 (83-108) mmHg ABG HCO3 (21-25) mmol/L ABG O2 Saturation (94-97) % VBG pH (7.31-7.41) VBG pCO2 (37-51) mmHg VBG HCO3 (24-28) mmol/L Sodium (137-145) mmol/L Potassium 3.2 L (3.5-5.1) mmol/L Chloride 125 H (98-107) mmol/L Carbon Dioxide 17 L (22-30) mmol/L BUN 29 H (9-20) mg/dL Creatinine 1.94 H (0.66-1.25) mg/dL Glucose 271 H (74-99) mg/dL POC Glucose (mg/dL) 246 H 237 H (70-110) mg/dL Plasma Lactic Acid David (0.7-2.0) mmol/L Calcium 8.0 L (8.4-10.2) mg/dL Phosphorus (2.5-4.5) mg/dL 05/18/22 05/18/22 05/18/22 Range/Units 02:04 02:58 04:04 RBC (4.30-5.90) m/uL Hgb (13.0-17.5) gm/dL Hct (39.0-53.0) % ABG pH (7.35-7.45) ABG pO2 (83-108) mmHg ABG HCO3 (21-25) mmol/L ABG O2 Saturation (94-97) % VBG pH (7.31-7.41) VBG pCO2 (37-51) mmHg VBG HCO3 (24-28) mmol/L Sodium (137-145) mmol/L Potassium (3.5-5.1) mmol/L Chloride (98-107) mmol/L Carbon Dioxide (22-30) mmol/L BUN (9-20) mg/dL Creatinine (0.66-1.25) mg/dL Glucose (74-99) mg/dL POC Glucose (mg/dL) 233 H 214 H 185 H (70-110) mg/dL Plasma Lactic Acid David (0.7-2.0) mmol/L Calcium (8.4-10.2) mg/dL Phosphorus (2.5-4.5) mg/dL 05/18/22 05/18/22 05/18/22 Range/Units 05:08 05:12 05:12 RBC 3.76 L (4.30-5.90) m/uL Hgb 12.4 L D (13.0-17.5) gm/dL Hct 36.2 L (39.0-53.0) % ABG pH (7.35-7.45) ABG pO2 (83-108) mmHg ABG HCO3 (21-25) mmol/L ABG O2 Saturation (94-97) % VBG pH (7.31-7.41) VBG pCO2 (37-51) mmHg VBG HCO3 (24-28) mmol/L Sodium 146 H (137-145) mmol/L Potassium 3.4 L (3.5-5.1) mmol/L Chloride 126 H (98-107) mmol/L Carbon Dioxide 17 L (22-30) mmol/L BUN 27 H (9-20) mg/dL Creatinine 2.02 H (0.66-1.25) mg/dL Glucose 127 H (74-99) mg/dL POC Glucose (mg/dL) 145 H (70-110) mg/dL Plasma Lactic Acid David (0.7-2.0) mmol/L Calcium 7.9 L (8.4-10.2) mg/dL Phosphorus 1.2 L (2.5-4.5) mg/dL 05/18/22 05/18/22 05/18/22 Range/Units 05:44 06:11 07:04 RBC (4.30-5.90) m/uL Hgb (13.0-17.5) gm/dL Hct (39.0-53.0) % ABG pH 7.22 L (7.35-7.45) ABG pO2 221 H (83-108) mmHg ABG HCO3 18 L (21-25) mmol/L ABG O2 Saturation 100.0 H (94-97) % VBG pH (7.31-7.41) VBG pCO2 (37-51) mmHg VBG HCO3 (24-28) mmol/L Sodium (137-145) mmol/L Potassium (3.5-5.1) mmol/L Chloride (98-107) mmol/L Carbon Dioxide (22-30) mmol/L BUN (9-20) mg/dL Creatinine (0.66-1.25) mg/dL Glucose (74-99) mg/dL POC Glucose (mg/dL) 117 H 113 H (70-110) mg/dL Plasma Lactic Acid David (0.7-2.0) mmol/L Calcium (8.4-10.2) mg/dL Phosphorus (2.5-4.5) mg/dL Microbiology - Last 24 Hours (Table) 05/17/22 15:40 Sputum Culture - Preliminary Sputum
[2022-05-18 17:19] LABS: Glucose,Whole Blood 96 mg/dL (70-110)
[2022-05-18] MEDS: SODIUM CHLORIDE 0.45% 1,000 ML IV SCH (17:51)
[2022-05-18] MEDS: INSULIN ASPART (NovoLOG) 100 UNIT/ML VIAL SQ SCH ×2 (17:57→21:29)
[2022-05-18 17:58] LABS: Glucose,Whole Blood 95 mg/dL (70-110)
[2022-05-18 19:11] LABS: Glucose,Whole Blood 153 mg/dL (70-110)
[2022-05-18] MEDS ORDERED: IPRATROPIUM-ALBUTEROL 3 ML NEB INHALATION PRN (19:15)
[2022-05-18 20:21] LABS: Glucose,Whole Blood 234 mg/dL (70-110)
[2022-05-18 21:00] LABS: Glucose,Whole Blood 271 mg/dL (70-110)
[2022-05-18] MEDS ORDERED: INSULIN DETEMIR (LEVEMIR) 100 UNIT/ML SYR SQ SCH (21:00)
[2022-05-18 23:24] LABS: Glucose,Whole Blood 210 mg/dL (70-110)
[2022-05-19] MEDS: PIPERACILLIN-TAZOBACTAM 3.375 GM in SODIUM CHLORIDE 0.9% 100 ML IVPB SCH ×2 (00:35→08:26)
[2022-05-19 02:57] LABS: Glucose,Whole Blood 158 mg/dL (70-110)
[2022-05-19] MEDS: HYDROmorphone 0.5 MG/0.5 ML SYRINGE IVP PRN (03:00)
[2022-05-19 06:08] LABS: HCT 31.3 % (39.0-53.0); HGB 10.9 gm/dL (13.0-17.5); MCH 33.2 pg (25.0-35.0); MCV 94.9 fL (80.0-100.0); Mean Platelet Volume 9.6; Platelet Count 164 k/uL (150-450); RBC 3.29 m/uL (4.30-5.90); RDW 12.5 % (11.5-15.5); WBC 8.5 k/uL (3.8-10.6)
[2022-05-19 06:29] LABS: Calcium 7.7 mg/dL (8.4-10.2); Potassium 3.1 mmol/L (3.5-5.1)
[2022-05-19] MEDS ORDERED: Potassium Replacement Protocol 1 EACH MISC MISCELLANE PRN (06:42)
[2022-05-19 06:54] LABS: Glucose,Whole Blood 141 mg/dL (70-110)
[2022-05-19] MEDS: POTASSIUM CHLORIDE 10 MEQ in WATER FOR INJECTION 1 100ML.BAG IVPB SCH ×2 (06:57→08:26)
[2022-05-19] MEDS: INSULIN ASPART (NovoLOG) 100 UNIT/ML VIAL SQ SCH ×4 (07:03→21:24)
[2022-05-19] MEDS: IPRATROPIUM-ALBUTEROL 3 ML NEB INHALATION SCH ×2 (07:41→20:10)
[2022-05-19] MEDS: SODIUM CHLORIDE 0.45% 1,000 ML IV SCH (08:27)
[2022-05-19] MEDS: NICOTINE 21MG/24HR PATCH TRANSDERM SCH (08:27)
[2022-05-19] MEDS: PANTOPRAZOLE 40 MG/10 ML VIAL IVP SCH (08:28)
[2022-05-19] MEDS: HEPARIN SODIUM,PORCINE/PF 5,000 UNIT/0.5 ML SYRINGE SQ SCH (08:30)
--- NOTE | 2022-05-19 09:14 | XR ---
EXAMINATION TYPE: XR chest 1V portable DATE OF EXAM: 05/19/2022 Comparison: 05/18/2022 Clinical History: 42-year-old male follow up Findings: Heart normal size. Hyperinflation. Patchy bibasilar opacities remain and have slightly increased in t he interval. Impression: COPD. Increasing patchy bibasilar infiltrates. Correlate for infectious or aspiration pneumonitis.
--- NOTE | 2022-05-19 10:44 | P.PN ---
Subjective Progress Note Date: 05/19/22 Patient is a 42-year-old male with no significant past medical history presenting for altered mentation, and dehydration. Apparently the way states he was diagnosed with hyperglycemia in January but was not started on any medications. In the emergency department he underwent an extensive evaluation. He was tachypneic and tachycardic but was initially on room air. Laboratory analysis was significant for white blood cell count 12.4, hemoglobin 18.4, hematocrit 61.3, carbon dioxide less than 5, BUN 21, creatinine 2.07, glucose 794, lactic acid 6.6, magnesium 3, ammonia 73, and lipase 349. Initial arterial blood gas showed a pH of less than 6.8. Patient ultimately required intubation. He was placed on IV fluids and an insulin drip for DKA. Chest x-ray demonstrated left lower lobe atelectasis and some malposition of the endotracheal tube. CT of the brain showed pansinusitis. Repeat chest x-ray showed endotracheal tube in good position. He was admitted to the ICU. Pulmonary critical care was consulted. He was continued on DKA protocol and his gap was closed. He was extubated on 05/18 but was agitated. He was able to come off insulin gtt on 05/18. He was transitioned to sub cutaneous insulin. Patient seen and examined at bedside. He is feeling much better than prior to admission. He is aware that he will need to be on insulin at discharge. Denies chest pain, SOB, or nausea. Would like his zamorano removed. General: nontoxic, no distress, appears at stated age Derm: warm, dry Head: atraumatic, normocephalic, symmetric Eyes: EOMI, no lid lag, anicteric sclera Mouth: no lip lesion, mucus membranes moist Cardiovascular: S1S2 reg, no murmur, positive posterior tibial pulse bilateral, Lungs: Decreased bs bilateral, no rhonchi, no rales , no accessory muscle use Abdominal: soft, nontender to palpation, no guarding, no appreciable organomegaly Ext: no gross muscle atrophy, no edema, no contractures Neuro: CN II-XI grossly intact, moving all 4 extremities independently. Psych: alert, oriented, appropriate affect. Assessment/Plan: Diabetic ketoacidosis Acute metabolic encephalopathy New-onset diabetes mellitus Severe dehydration resulting in Acute kidney injury Pansinusitis - IVF fluids - SSI and levemir at night - follow BS - A1C 16.8 - IVF discontinued, encouraged oral intake - monitor urine output - cognitive evaluation - insulin training - dietitian education Hypokalemia -Replace and recheck in a.m. Nicotine dependence - replacement Hypophosphatemia, resolved Lactic acidosis, resolved Polycythemia secondary to dehydration, resolved Acute respiratory failure Status s/p intubation and mechanical ventilation DVT prophylaxis: Subcu heparin Anticipated discharge date: in AM Anticipated discharge place: home A total of 35 minutes was spent on the care of this complex patient more than 50% of the time was spent in counseling and care coordination. Active Medications Generic Name Dose Route Start Last Admin Trade Name Freq PRN Reason Stop Dose Admin Albuterol/Ipratropium 3 ml 05/18/22 20:00 05/19/22 07:41 Ipratropium-Albuterol 3 Ml Neb INHALATION Not Given RT-TID [facility] Albuterol/Ipratropium 3 ml 05/18/22 19:15 Ipratropium-Albuterol 3 Ml Neb INHALATION RT-Q2H PRN Shortness Of Breath Or Wheezing Dextrose/Water 25 ml 05/18/22 16:56 Dextrose 50% Syringe 50 Ml IVP PER PROTOCOL PRN Hypoglycemia Protocol Dextrose/Water 50 ml 05/18/22 16:56 Dextrose 50% Syringe 50 Ml IVP PER PROTOCOL PRN Hypoglycemia Protocol Haloperidol Lactate 2 mg 05/18/22 11:49 05/18/22 16:22 Haloperidol Lactate 5 Mg/Ml 1 Ml Vial IVP 2 mg Q6HR PRN Administration Agitation or Acute Psychosis Heparin Sodium (Porcine) 5,000 unit 05/17/22 09:30 05/19/22 08:30 Heparin Sodium,Porcine/Pf 5,000 Unit/0.5 Ml Syringe SQ 5,000 unit Q12HR [facility] Administration Hydromorphone HCl 0.5 mg 05/17/22 09:23 05/19/22 03:00 Hydromorphone 0.5 Mg/0.5 Ml Syringe IVP 0.5 mg Q4HR PRN Administration Pain Insulin Aspart 0 unit 05/18/22 17:30 05/19/22 07:03 Insulin Aspart (Novolog) 100 Unit/Ml Vial SQ Not Given ACHS [facility] Protocol Insulin Detemir 10 unit 05/18/22 21:00 05/18/22 21:29 Insulin Detemir (Levemir) 100 Unit/Ml Syr SQ 10 unit HS [facility] Administration Lorazepam 0.5 mg 05/18/22 16:53 Lorazepam 2 Mg/Ml Inj IV Q4HR PRN Anxiety Miscellaneous Information 1 each 05/17/22 14:02 Phosphorus Replacement Protoco 1 Each Misc MISCELLANE DAILY PRN Per Protocol Protocol Miscellaneous Information 1 each 05/18/22 06:29 Potassium Replacement Protocol 1 Each Misc MISCELLANE DAILY PRN Per Protocol Protocol Nicotine 1 patch 05/18/22 16:15 05/19/22 08:27 Nicotine 21mg/24hr Patch TRANSDERM 1 patch DAILY [facility] Administration Pantoprazole Sodium 40 mg 05/17/22 10:33 05/19/22 08:28 Pantoprazole 40 Mg/10 Ml Vial IVP 40 mg DAILY [facility] Administration Potassium Chloride 20 meq 05/19/22 10:00 Potassium Chloride Er 20 Meq Tab.Er PO 05/19/22 11:01 Q1HR [facility] Protocol Objective - Vital Signs Vital signs: Vital Signs Temp 97.4 F L 05/19/22 08:00 Pulse 83 05/19/22 08:00 Resp 18 05/19/22 08:00 BP 108/77 05/19/22 08:00 Pulse Ox 96 05/19/22 08:00 FiO2 50 05/18/22 08:00 Intake & Output 05/18/22 05/19/22 05/19/22 18:59 06:59 18:59 Intake Total 2195.875 900 150 Output Total 895 1060 285 Balance 1300.875 -160 -135 Weight 51.2 kg Intake: IV 2075 900 150 D5-0.45% NaCl with KCl 1225 20Meq/l 1,000 ml @ 75 mls /hr IV .[id number] [facility] Rx#: [id number] Piperacillin-Tazobactam 3 200 .375 gm In Sodium Chloride 0.9% 100 ml @ 25 mls/hr IVPB Q8HR [facility] Rx# :[id number] Potassium Phosphate 10 500 mmol In Sodium Chloride 0 .9% 250 ml @ 125 mls/hr IV ONCE ONE Rx#:[id number] Sodium Chloride 0.45% 1, 150 900 150 000 ml @ 75 mls/hr IV . [id number] [facility] Rx#:[id number] Intake, IV Titration 120.875 Amount Insulin Regular 100 unit 29.667 In Sodium Chloride 0.9% 100 ml @ 0.1 UNITS/KG/HR 4.81 mls/hr IV .Q21H [facility] Rx#:[id number] propofoL 1,000 mg In 91.208 Empty Bag 1 bag @ 15 MCG/ KG/MIN 4.286 mls/hr IV . [id number] [facility] Rx#:[id number] Output: Urine 895 1060 285 Other: Voiding Method Indwelling Catheter Indwelling Catheter Indwelling Catheter - Labs CBC & Chem 7: 05/19/22 05:43 05/19/22 05:43 Labs: Abnormal Lab Results - Last 24 Hours (Table) 05/18/22 05/18/22 05/18/22 Range/Units 05:12 13:14 14:06 RBC (4.30-5.90) m/uL Hgb (13.0-17.5) gm/dL Hct (39.0-53.0) % Potassium (3.5-5.1) mmol/L Chloride (98-107) mmol/L Carbon Dioxide (22-30) mmol/L Creatinine (0.66-1.25) mg/dL Glucose (74-99) mg/dL POC Glucose (mg/dL) 169 H 169 H (70-110) mg/dL Hemoglobin A1c 16.8 H (0.0-6.0) % Calcium (8.4-10.2) mg/dL 05/18/22 05/18/22 05/18/22 Range/Units 15:00 16:03 19:10 RBC (4.30-5.90) m/uL Hgb (13.0-17.5) gm/dL Hct (39.0-53.0) % Potassium (3.5-5.1) mmol/L Chloride (98-107) mmol/L Carbon Dioxide (22-30) mmol/L Creatinine (0.66-1.25) mg/dL Glucose (74-99) mg/dL POC Glucose (mg/dL) 189 H 124 H 153 H (70-110) mg/dL Hemoglobin A1c (0.0-6.0) % Calcium (8.4-10.2) mg/dL 05/18/22 05/18/22 05/18/22 Range/Units 20:08 20:58 23:22 RBC (4.30-5.90) m/uL Hgb (13.0-17.5) gm/dL Hct (39.0-53.0) % Potassium (3.5-5.1) mmol/L Chloride (98-107) mmol/L Carbon Dioxide (22-30) mmol/L Creatinine (0.66-1.25) mg/dL Glucose (74-99) mg/dL POC Glucose (mg/dL) 234 H 271 H 210 H (70-110) mg/dL Hemoglobin A1c (0.0-6.0) % Calcium (8.4-10.2) mg/dL 05/19/22 05/19/22 05/19/22 Range/Units 02:56 05:43 05:43 RBC 3.29 L (4.30-5.90) m/uL Hgb 10.9 L (13.0-17.5) gm/dL Hct 31.3 L (39.0-53.0) % Potassium 3.1 L (3.5-5.1) mmol/L Chloride 118 H (98-107) mmol/L Carbon Dioxide 16 L (22-30) mmol/L Creatinine 1.76 H (0.66-1.25) mg/dL Glucose 129 H (74-99) mg/dL POC Glucose (mg/dL) 158 H (70-110) mg/dL Hemoglobin A1c (0.0-6.0) % Calcium 7.7 L (8.4-10.2) mg/dL 05/19/22 Range/Units 06:52 RBC (4.30-5.90) m/uL Hgb (13.0-17.5) gm/dL Hct (39.0-53.0) % Potassium (3.5-5.1) mmol/L Chloride (98-107) mmol/L Carbon Dioxide (22-30) mmol/L Creatinine (0.66-1.25) mg/dL Glucose (74-99) mg/dL POC Glucose (mg/dL) 141 H (70-110) mg/dL Hemoglobin A1c (0.0-6.0) % Calcium (8.4-10.2) mg/dL Microbiology - Last 24 Hours (Table) 05/17/22 15:40 Gram Stain - Preliminary Sputum Sputum Culture - Preliminary Yeast species
[2022-05-19 11:15] LABS: Glucose,Whole Blood 259 mg/dL (70-110)
[2022-05-19] MEDS: POTASSIUM CHLORIDE ER 20 MEQ TAB.ER PO SCH ×2 (11:45→14:15)
[2022-05-19 12:52] VITALS: BMI 18.2
--- NOTE | 2022-05-19 13:18 | P.PN ---
Subjective Progress Note Date: 05/19/22 Principal diagnosis: Diabetic ketoacidosis, respiratory failure. Pulmonary consult dated 05/17/2022. 42-year-old male with no significant past medical history other than suspected diabetes, who apparently was found unresponsive with mental status changes, by his . Apparently he was lying on the floor next to the bed. He was unable to respond or speak. EMS was called, and the patient was transported into the emergency department. In the emergency department, he did receive Narcan, without any change. The patient was intubated in the emergency room. The patient has no significant past medical history according to his , and takes no medications on a routine basis at home. The patient does smoke cigarettes. The patient recently failed his Department of Transportation examination because of elevated blood sugar. For that reason, the states that they suspected diabetes. Apparently no alcohol use. No family doctor as mentioned above. He seen in the emergency room, trauma room 1. He is intubated and mechanically ventilated. He is getting propofol at 35 mcg/kg/m, and saline via bolus. An insulin drip is going to be started. He has an NG tube in place, a Hedrick catheter in place, and an endotracheal tube. Ventilator settings include the vo lume assist control, rate 16, tidal volume 400, FiO2 50%, and PEEP of 5. White count 12.4, hemoglobin 18.4, hematocrit 61.3, and platelet count 395,000. Blood gases show a PaO2 of 256, pCO2 of 16, and a pH is 6.80. Sodium 140, potassium 4.5, chlorides 105, CO2 less than 5, BUN 21, and creatinine 2.07. Glucose was 794. Lactic acid 6.6. Magnesium 3. Lipase 349. Drug screen was negative. Brain CT was negative save for pansinusitis. Chest x-ray shows a properly placed NG tube, and a properly placed endotracheal tube. It's 3.5 cm above the ashutosh. Progress note dated 05/18/2022. 42-year-old male seen in consultation yesterday. The patient was admitted with a diagnosis of severe diabetic ketoacidosis, metabolic acidosis, severe dehydration, and respiratory failure. The patient was actually intubated in the emergency department. The patient has no known medical history, other than suspected diabetes. He does smoke cigarettes. When he, he is on volume assist control, rate 16, tidal volume 400, FiO2 50%, and PEEP of 5. Blood gases show pO2 221, pCO2 43, and pH is 7.22. The patient is on propofol at 30 mcg/kg/m, D5 with half-normal saline with 20 mEq of potassium at 150 mL an hour, and saline at KVO. His most recent bicarbonate concentration was 17, glucose 113, and an ion gap was 3. We'll attempt a daily interruption of sedation and a spontaneous breathing trial today. White count 7, hemoglobin 12.4, hematocrit 36.2, and platelet count normal. Most recent blood gas is noted. Sodium 146, potassium 3.4, chlorides 126, CO2 17, anion gap 3, BUN 27, and creatinine 2.02. Hemoglobin A1c was 16.8. Lipase was 349. The patient's chest x-ray was normal. Progress note dated 05/19/2022. 42-year-old male who was admitted with a diagnosis of new onset diabetes with diabetic ketoacidosis. The patient had severe metabolic acidosis, dehydration, and respiratory failure. The patient was successfully extubated from mechanical ventilation on May 18. Currently, he's on room air, and not receiving any IV fluids. His antibiotics can be discontinued. The patient could be transferred to general medical floor. White count 8.5, hemoglobin 10.9, hematocrit 31.3, with a normal platelet count. Sodium 140, potassium 3.1, chlorides 118, CO2 16, anion gap 6, BUN 20, and creatinine 1.76. Calcium 7.7. Objective - Vital Signs Vital signs: Vital Signs Temp 97.4 F L 05/19/22 08:00 Pulse 83 05/19/22 08:00 Resp 18 05/19/22 08:00 BP 108/77 05/19/22 08:00 Pulse Ox 96 05/19/22 08:00 FiO2 50 05/18/22 08:00 Intake & Output 05/18/22 05/19/22 05/19/22 18:59 06:59 18:59 Intake Total 2195.875 900 150 Output Total 895 1060 285 Balance 1300.875 -160 -135 Weight 51.2 kg 51.2 kg Intake: IV 2075 900 150 D5-0.45% NaCl with KCl 1225 20Meq/l 1,000 ml @ 75 mls /hr IV .[id number] [facility] Rx#: [id number] Piperacillin-Tazobactam 3 200 .375 gm In Sodium Chloride 0.9% 100 ml @ 25 mls/hr IVPB Q8HR [facility] Rx# :[id number] Potassium Phosphate 10 500 mmol In Sodium Chloride 0 .9% 250 ml @ 125 mls/hr IV ONCE ONE Rx#:[id number] Sodium Chloride 0.45% 1, 150 900 150 000 ml @ 75 mls/hr IV . [id number] [facility] Rx#:[id number] Intake, IV Titration 120.875 Amount Insulin Regular 100 unit 29.667 In Sodium Chloride 0.9% 100 ml @ 0.1 UNITS/KG/HR 4.81 mls/hr IV .Q21H [facility] Rx#:[id number] propofoL 1,000 mg In 91.208 Empty Bag 1 bag @ 15 MCG/ KG/MIN 4.286 mls/hr IV . [id number] [facility] Rx#:[id number] Output: Urine 895 1060 285 Other: Voiding Method Indwelling Catheter Indwelling Catheter Indwelling Catheter - Exam No acute distress, awake and alert, currently on room air. HEENT examination is grossly unremarkable. Neck supple. Full range of motion. No adenopathy thyromegaly or neck vein distention. Cardiovascular examination reveals regular rhythm rate. S1-S2 normal. No S3 or S4. No discernible murmur noted. Heart rate 83 bpm. Lungs reveal clear breath sounds. Breath sounds are equal bilaterally. No adventitious lung sounds including wheezes rhonchi or crackles. Saturations are 96 %. Abdomen soft bowel sounds are heard. No masses or tenderness. Extremities are intact. No cyanosis clubbing or edema. Skin is without rash or lesion. Neurologic examination is nonfocal. - Labs CBC & Chem 7: 05/19/22 05:43 05/19/22 05:43 Labs: Abnormal Lab Results - Last 24 Hours (Table) 05/18/22 05/18/22 05/18/22 Range/Units 13:14 14:06 15:00 RBC (4.30-5.90) m/uL Hgb (13.0-17.5) gm/dL Hct (39.0-53.0) % Potassium (3.5-5.1) mmol/L Chloride (98-107) mmol/L Carbon Dioxide (22-30) mmol/L Creatinine (0.66-1.25) mg/dL Glucose (74-99) mg/dL POC Glucose (mg/dL) 169 H 169 H 189 H (70-110) mg/dL Calcium (8.4-10.2) mg/dL 05/18/22 05/18/22 05/18/22 Range/Units 16:03 19:10 20:08 RBC (4.30-5.90) m/uL Hgb (13.0-17.5) gm/dL Hct (39.0-53.0) % Potassium (3.5-5.1) mmol/L Chloride (98-107) mmol/L Carbon Dioxide (22-30) mmol/L Creatinine (0.66-1.25) mg/dL Glucose (74-99) mg/dL POC Glucose (mg/dL) 124 H 153 H 234 H (70-110) mg/dL Calcium (8.4-10.2) mg/dL 05/18/22 05/18/22 05/19/22 Range/Units 20:58 23:22 02:56 RBC (4.30-5.90) m/uL Hgb (13.0-17.5) gm/dL Hct (39.0-53.0) % Potassium (3.5-5.1) mmol/L Chloride (98-107) mmol/L Carbon Dioxide (22-30) mmol/L Creatinine (0.66-1.25) mg/dL Glucose (74-99) mg/dL POC Glucose (mg/dL) 271 H 210 H 158 H (70-110) mg/dL Calcium (8.4-10.2) mg/dL 05/19/22 05/19/22 05/19/22 Range/Units 05:43 05:43 06:52 RBC 3.29 L (4.30-5.90) m/uL Hgb 10.9 L (13.0-17.5) gm/dL Hct 31.3 L (39.0-53.0) % Potassium 3.1 L (3.5-5.1) mmol/L Chloride 118 H (98-107) mmol/L Carbon Dioxide 16 L (22-30) mmol/L Creatinine 1.76 H (0.66-1.25) mg/dL Glucose 129 H (74-99) mg/dL POC Glucose (mg/dL) 141 H (70-110) mg/dL Calcium 7.7 L (8.4-10.2) mg/dL 05/19/22 Range/Units 11:13 RBC (4.30-5.90) m/uL Hgb (13.0-17.5) gm/dL Hct (39.0-53.0) % Potassium (3.5-5.1) mmol/L Chloride (98-107) mmol/L Carbon Dioxide (22-30) mmol/L Creatinine (0.66-1.25) mg/dL Glucose (74-99) mg/dL POC Glucose (mg/dL) 259 H (70-110) mg/dL Calcium (8.4-10.2) mg/dL Microbiology - Last 24 Hours (Table) 05/17/22 15:40 Gram Stain - Preliminary Sputum Sputum Culture - Preliminary Yeast species Assessment and Plan Assessment: Acute diabetic ketoacidosis, and a patient with suspected diabetes, based on a failed DOT examination. S/P intubation and mechanical ventilation for acute respiratory failure and inability to protect his airway, 05/17/2022, with successful extubation from mechanical ventilation on May 18. Acute kidney injury. Severe anion gap metabolic acidosis, resolved. Severe dehydration. Acute lactic acidemia. Polycythemia secondary to dehydration. History of tobacco use. Plan: Plan dated 05/17/2022. The patient is seen in the emergency room, trauma room 1. The patient is currently connected to mechanical ventilator. He sedated. The patient will be given a fluid bolus, and also on insulin drip. The patient has an NG tube in place, Hedrick catheter in place, and endotracheal tube in place. The patient has no significant past medical history although the family suspected diabetes, based on a failed DOT examination. The patient does not have a family doctor. The patient does smoke cigarettes. The patient does not drink alcohol or take illicit drugs. The patient does not take any prescription medications at home on a regular basis. The patient is admitted to the intensive care unit. Plan dated 05/18/2022. The patient can be weaned, and potentially extubated today. The patient's la boratory data are much improved. The patient's chest x-ray is normal. He remains on propofol, and IV fluids. Labs, x-rays, and medications are reviewed. Prognosis is certainly guarded. We will continue to follow the patient and make recommendations along the way. The patient will have a daily interruption of sedation today, and a breathing trial today. Plan dated 05/19/2022. The patient can be transferred out of the intensive care unit, to a general medical floor bed, without telemetry. The patient will need to find a family doctor, and an coordinate measuring machine programmer. The Zosyn was discontinued. Labs, x-rays, medications are reviewed. Prognosis is guarded. We will see the patient moving forward only as needed. Time with Patient: Less than 30
[2022-05-19 16:53] LABS: Glucose,Whole Blood 334 mg/dL (70-110)
[2022-05-19 19:51] LABS: Glucose,Whole Blood 576 mg/dL (70-110)
[2022-05-19] MEDS ORDERED: INSULIN DETEMIR (LEVEMIR) 100 UNIT/ML SYR SQ SCH (21:00)
[2022-05-20] MEDS: IPRATROPIUM-ALBUTEROL 3 ML NEB INHALATION SCH ×3 (01:38→11:29)
[2022-05-20 02:38] LABS: Glucose,Whole Blood 242 mg/dL (70-110)
[2022-05-20] MEDS: HEPARIN SODIUM,PORCINE/PF 5,000 UNIT/0.5 ML SYRINGE SQ SCH ×2 (04:20→07:31)
[2022-05-20] MEDS: INSULIN ASPART (NovoLOG) 100 UNIT/ML VIAL SQ SCH ×4 (06:09→11:53)
[2022-05-20 06:18] LABS: Glucose,Whole Blood 95 mg/dL (70-110)
[2022-05-20 06:32] LABS: African American GFR (CKD) 70 (>60 ml/min/1.73 sqM); Anion Gap 4 mmol/L; Blood Urea Nitrogen 19 mg/dL (9-20); Calcium 8.6 mg/dL (8.4-10.2); Carbon Dioxide 20 mmol/L (22-30); Chloride 115 mmol/L (98-107); Glucose 82 mg/dL (74-99); Non-African American GFR(CKD) 60 (>60 ml/min/1.73 sqM); Potassium 2.9 mmol/L (3.5-5.1); Sodium 139 mmol/L (137-145)
[2022-05-20] MEDS ORDERED: PANTOPRAZOLE 40 MG TABLET PO SCH (07:30)
[2022-05-20] MEDS: NICOTINE 21MG/24HR PATCH TRANSDERM SCH (07:30)
[2022-05-20] MEDS ORDERED: POTASSIUM CHLORIDE ER 20 MEQ TAB.ER PO STA (08:12)
[2022-05-20] MEDS ORDERED: lisinopriL 5 MG TAB PO SCH (09:00)
[2022-05-20] MEDS ORDERED: POTASSIUM CHLORIDE 20 MEQ in WATER FOR INJECTION 1 100ML.BAG IVPB ONE (09:00)
[2022-05-20 11:35] LABS: Glucose,Whole Blood 281 mg/dL (70-110)
[2022-05-20 13:48] VITALS: BP 114/77; PULSE 95; RESP 16; TEMP 97.7
[2022-05-20 15:29] LABS: African American GFR (CKD) 70 (>60 ml/min/1.73 sqM); Anion Gap 4 mmol/L; Blood Urea Nitrogen 21 mg/dL (9-20); Calcium 8.7 mg/dL (8.4-10.2); Carbon Dioxide 20 mmol/L (22-30); Chloride 110 mmol/L (98-107); Glucose 234 mg/dL (74-99); Non-African American GFR(CKD) 61 (>60 ml/min/1.73 sqM); Potassium 3.5 mmol/L (3.5-5.1); Sodium 134 mmol/L (137-145)
--- NOTE | 2022-05-20 19:10 | P.DS ---
Providers Date of admission: 05/17/22 06:24 Expected date of discharge: 05/20/22 Attending physician: Susie Eid MD Primary care physician: Stated None Hospital Course: Discharge Diagnosis: Diabetic ketoacidosis Acute metabolic encephalopathy New-onset diabetes mellitus Severe dehydration resulting in Acute kidney injury Pansinusitis Hypokalemia Nicotine dependence Hypophosphatemia, resolved Lactic acidosis, resolved Polycythemia secondary to dehydration, resolved Acute respiratory failure Status s/p intubation and mechanical ventilation Hospital Course: Patient is a 42-year-old male with no significant past medical history presenting for altered mentation, and dehydration. Apparently the way states he was diagnosed with hyperglycemia in January but was not started on any medications. In the emergency department he underwent an extensive evaluation. He was tachypneic and tachycardic but was initially on room air. Laboratory analysis was significant for white blood cell count 12.4, hemoglobin 18.4, hematocrit 61.3, carbon dioxide less than 5, BUN 21, creatinine 2.07, glucose 794, lactic acid 6.6, magnesium 3, ammonia 73, and lipase 349. Initial arterial blood gas showed a pH of less than 6.8. Patient ultimately required intubation. He was placed on IV fluids and an insulin drip for DKA. Chest x-ray demonstrated left lower lobe atelectasis and some malposition of the endotracheal tube. CT of the brain showed pansinusitis. Repeat chest x-ray showed endotracheal tube in good position. He was admitted to the ICU. Pulmonary critical care was consulted. He was continued on DKA protocol and his gap was closed. He was extubated on 05/18 but was agitated. He was able to come off insulin gtt on 05/18. He was transitioned to sub cutaneous insulin. He did have his blood sugar increased but then remained controlled. He was doing well. His renal function improved. He was determined stable for discharge. Follow-up: Patient plans to establish with Dr. Rosario Bell, he will also establish with Dr. Escalante for endocrinology. He is aware that he needs testing to determine if he has type I or type 2 diabetes mellitus. He was discharged home with the basalglar 15 units nightly, Humalog 4 units with meals, he was given instructions to check blood sugars 3 times daily. He was also given a prescription for a glucometer. Patient was given education on how to perform insulin injections and check blood sugars. He was sent home with reading on diabetes. He also met with the dietitian prior to discharge. He was given information on the diabetic education center at [facility]. Patient seen and examined at bedside. Doing well. No chest pain, shortness breath, or nausea. present at bedside. All questions answered. We went over extensive education on diabetes as outlined above. Vital signs reviewed and stable. General: nontoxic, no distress, appears at stated age Derm: warm, dry Head: atraumatic, normocephalic, symmetric Eyes: EOMI, no lid lag, anicteric sclera Mouth: no lip lesion, mucus membranes moist Cardiovascular: S1S2 reg, no murmur, positive posterior tibial pulse bilateral, Lungs: CTA bilateral, no rhonchi, no rales , no accessory muscle use Abdominal: soft, nontender to palpation, no guarding, no appreciable organomegaly Ext: no gross muscle atrophy, no edema, no contractures Neuro: CN II-XI grossly intact, no focal neuro deficits Psych: Alert, oriented, appropriate affect A total of 75 minutes of time were spent preparing this complex discharge summary. Patient was discharged on 05/20/22. Patient Condition at Discharge: Stable Plan - Discharge Summary Discharge Rx Participant: Yes New Discharge Prescriptions: New Insulin Lispro [humaLOG Kwikpen] 4 unit SQ AC-TID #3 pen Insulin Glargine,Hum.rec.anlog [Basaglar Kwikpen U-100] 15 unit SQ HS #5 pen lisinopriL [Zestril] 5 mg PO DAILY #30 tab Discharge Medication List Insulin Glargine,Hum.rec.anlog [Basaglar Kwikpen U-100] 15 unit SQ HS #5 pen 05/20/22 [Rx] Insulin Lispro [humaLOG Kwikpen] 4 unit SQ AC-TID #3 pen 05/20/22 [Rx] lisinopriL [Zestril] 5 mg PO DAILY #30 tab 05/20/22 [Rx] Follow up Appointment(s)/Referral(s): Wagner Escalante MD [REFERRING] - 1 Week Rosario Bell MD [REFERRING] - 1 Week Patient Instructions/Handouts: Diabetic Ketoacidosis (DC), Type 1 Diabetes in Adults: New Diagnosis (GEN), Hypoglycemia in a Person with Diabetes (DC), Basic Carbohydrate Counting (DC) Activity/Diet/Wound Care/Special Instructions: Activity: as tolerated Diet: carb consistent Special Instructions: Check blood sugars 3 times daily. Make a log handwritten or an silvino for your phone. No driving until seen at Dr. Bell's office Please call the [facility] for specific class dates or individual appointment times. Our number is at [phone]. [facility] also offers a Diabetes Support and Education Group designed for people with diabetes and their families. The group meets at 1:00 p.m., the of each month, at [facility]. A variety of guest speakers joins this self- directed group to provide additional educational information and support. The Diabetes Support Group is offered free of charge. Discharge Disposition: HOME SELF-CARE
== END 2022-05-20 16:36 | disposition home or self-care (01) | DRG 637 ==
LOC: EC 04:13 → 2SICU 06:24 → 4SSUR 05-19 16:32
PROVIDERS: ADMIT Internal Medicine; ATTEND Internal Medicine
PROC: 0D9670Z Drainage of Stomach with Drainage Device, Via Natural or Artificial Opening (ICD-10-PCS; principal; 2022-05-17)
PROC: 0BH17EZ Insertion of Endotracheal Airway into Trachea, Via Natural or Artificial Opening (ICD-10-PCS; principal; 2022-05-17)
PROC: 5A1945Z Respiratory Ventilation, 24-96 Consecutive Hours (ICD-10-PCS; principal; 2022-05-17)
DX: E10.10 Type 1 diabetes mellitus with ketoacidosis without coma (principal); G93.41 Metabolic encephalopathy; J96.00 Acute respiratory failure, unspecified whether with hypoxia or hypercapnia; N17.9 Acute kidney failure, unspecified; R64 Cachexia; J98.11 Atelectasis; F17.210 Nicotine dependence, cigarettes, uncomplicated; E86.0 Dehydration; M25.569 Pain in unspecified knee; J32.4 Chronic pansinusitis; E87.6 Hypokalemia; E83.39 Other disorders of phosphorus metabolism; D75.1 Secondary polycythemia; Z71.3 Dietary counseling and surveillance
CPT/HCPCS: 31500; 36415; 36600; 70450; 71045; 80048; 80051; 80053; 80306; 80320; 81001; 82140; 82565; 82803; 82805; 82947; 83036; 83605; 83690; 83735; 83880; 84100; 84484; 84520; 85025; 85027; 87070; 87205; 93005; 94002; 94003; 94640; 96361; 96365; 96375; 99291